=== PATIENT | female | born 1970 | race Caucasian/White ===

== ENCOUNTER 2016-05-05 15:06 | Emergency (ER) | payer BC, OTHER ==
[~2016-05-05] VITALS: Ht 167.6 cm; Wt 154.2 kg
[~2016-05-05 15:06] MED LIST: ACCUNEB 0.1.25 MG/1 INH; ADVAIR 250/501 EA INH; ALBUTEROL0.09 MG/A2 IH; ANTIBIOTIC O500 U/GM TP; ATIVAN0.5 MG PO; CIPRO250 MG; CIPRO500 MG PO; CLARITIN-D 12 H1 TAB PO; DOXYCYCLINE100 M3 PO; DUONEB 3 MG/3 ML3 M1 INH; FLOVENT HF0.22 MG/AC INH; FLUVOXAMINE50 MG PO; GUAIFEN/CODEIN120 ML PO; HYDROCODONE BIT1 T11 PO; IMODIUM2 MG PO; K-DUR 1010 MEQ PO; LASIX20 MG PO; LEVAQUIN500 M2 PO; LUVOX25 MG PO; MECLIZINE HCL25 M2 PO; MEDROL DOSEPAK4 MG PO; NAPROSYN500 MG PO; NORCO 10-325 T1 EACH PO; PREDNISONE10 MG PO; PREDNISONE5 MG PO; PROAIR HFA0.09 MG/AC INH; TESSALON PERLE100 M1 PO; VENTOLIN H0.09 MG/AC INH; VENTOLIN0.09 MG/AC IH; VIBRAMYCIN100 MG PO; ZOFRAN ODT4 MG SL; Zofran4 MG PO; [UNRECOGNIZED DRUG - OTHER] IJ
[2016-05-05 15:16] VITALS: BP 142/82
[2016-05-05 15:58] LABS: BASO % 0.2 % (0.0-1.0); EOS # 0.1 10*3/uL (0.0-0.4); EOS % 1.3 % (1.0-4.0); LYMPH # 1.9 10*3/uL (1.3-4.4); LYMPH % 36.9 % (27.0-41.0); MEAN CELL VOLUME 90.5 fl (81.0-99.0); MEAN CORPUSCULAR HGB 29.3 pg (27.0-31.0); MEAN CORPUSCULAR HGB CONC 32.4 g/dl (33.0-37.0); MEAN PLATELET VOLUME 9.8 fl (9.6-12.3); MONO # 0.6 10*3/uL (0.1-1.0); MONO % 11.2 % (3.0-9.0); NEUT # 2.6 10*3/uL (2.3-7.9); NEUT % 49.8 % (47.0-73.0); PLATELET COUNT AUTOMATED 199 10*3/uL (130-400); RED BLOOD COUNT 4.09 10*6/uL (4.10-5.10); RED CELL DISTRI WIDTH 13.2 % (0-14.5); WHITE BLOOD COUNT 5.3 10*3/uL (4.8-10.8)
[2016-05-05 16:02] LABS: BILIRUBIN NEGATIVE (NEGATIVE); BLOOD NEGATIVE (NEGATIVE); CLARITY CLEAR (CLEAR); COLOR YELLOW (YELLOW); GLUCOSE NEGATIVE (NEGATIVE); KETONE NEGATIVE (NEGATIVE); LEUKO ESTERASE NEGATIVE (NEGATIVE); NITRITE NEGATIVE (NEGATIVE); PROTEIN NEGATIVE (NEGATIVE); SPECIFIC GRAVITY >= 1.030 (1.005-1.030); UROBILINOGEN 0.2 E.U./dl (0.2-1.0)
[2016-05-05 16:13] LABS: MUCOUS TRACE; RBC 0-2 rbc/hpf (0-2); URINE REFLEX COMMENT NO (NO)
[2016-05-05 16:13] LABS: ALBUMIN 3.3 gm/dl (3.1-4.5); ALKALINE PHOSPHATASE 52 U/L (45-117); BILIRUBIN, TOTAL 0.5 mg/dl (0.2-1.0); BUN 13 mg/dl (7-24); CARBON DIOXIDE 26 mmol/L (21-32); CHLORIDE 108 mmol/L (98-107); EST GLOM FILT AFRICAN AMERICAN > 60 ml/min; GLUCOSE 105 mg/dL (65-99); POTASSIUM 3.7 mmol/L (3.5-5.1); SGOT/AST 25 IU/L (3-35); SGPT/ALT 47 U/L (12-78); SODIUM 144 mmol/L (136-145); TOTAL PROTEIN 6.5 gm/dL (6.4-8.2)
[2016-05-05] MEDS ORDERED: PRILOSEC20 M1 PO (17:21)
== END 2016-05-05 17:32 | disposition home or self-care (01) ==
LOC: ED 15:06
PROVIDERS: Physician Assistant
DX: R10.11 Right upper quadrant pain (principal); Z88.0 Allergy status to penicillin; Z88.6 Allergy status to analgesic agent; Z90.49 Acquired absence of other specified parts of digestive tract

== ENCOUNTER 2016-08-19 11:14 | Emergency (ER) | payer BC, OTHER ==
[~2016-08-19] VITALS: Ht 167.6 cm; Wt 149.7 kg
[~2016-08-19 11:14] MED LIST changes: +PRILOSEC20 M1 PO
[2016-08-19 11:21] VITALS: BP 133/79
[2016-08-19] MEDS ORDERED: DOXYCYCLINE100 M3 PO (11:24)
[2016-08-19] MEDS ORDERED: MEDROL2 M1 PO (11:24)
[2016-08-19 12:12] LABS: HEMATOCRIT 45.8 % (37.0-47.0); HEMOGLOBIN 15.1 g/dl (12.0-16.0); MEAN CELL VOLUME 88.4 fl (81.0-99.0); MEAN CORPUSCULAR HGB 29.2 pg (27.0-31.0); MEAN PLATELET VOLUME 11.1 fl (9.6-12.3); PLATELET COUNT AUTOMATED 236 10*3/uL (130-400); RED BLOOD COUNT 5.18 10*6/uL (4.10-5.10); RED CELL DISTRI WIDTH 12.5 % (0-14.5); WHITE BLOOD COUNT 6.5 10*3/uL (4.8-10.8)
[2016-08-19 12:28] LABS: ALBUMIN 3.9 gm/dl (3.1-4.5); ALKALINE PHOSPHATASE 67 U/L (45-117); BILIRUBIN, TOTAL 0.5 mg/dl (0.2-1.0); BUN 19 mg/dl (7-24); CARBON DIOXIDE 26 mmol/L (21-32); CHLORIDE 105 mmol/L (98-107); EST GLOM FILT AFRICAN AMERICAN > 60 ml/min; GLUCOSE 97 mg/dL (65-99); POTASSIUM 3.7 mmol/L (3.5-5.1); SGOT/AST 14 IU/L (3-35); SGPT/ALT 30 U/L (12-78); SODIUM 142 mmol/L (136-145); TOTAL PROTEIN 7.3 gm/dL (6.4-8.2)
[2016-08-19 12:31] LABS: LYMPHOCYTE # 0.3 10*3/uL (1.3-4.4); MONOCYTE # 0.3 10*3/uL (0.1-1.0); NEUTROPHIL # 5.9 10*3/uL (2.3-7.9); NEUTROPHILS 90 % (47-73); TOTAL CELLS COUNTED 100 #CELLS
[2016-08-19 12:32] LABS: PLATELET SUFFICIENCY NORMAL (NORMAL)
[2016-08-19 13:12] LABS: BILIRUBIN NEGATIVE (NEGATIVE); BLOOD NEGATIVE (NEGATIVE); CLARITY SL CLOUDY (CLEAR); COLOR YELLOW (YELLOW); GLUCOSE NEGATIVE (NEGATIVE); KETONE NEGATIVE (NEGATIVE); LEUKO ESTERASE NEGATIVE (NEGATIVE); NITRITE NEGATIVE (NEGATIVE); PH 5.5 (5.0-9.0); PROTEIN NEGATIVE (NEGATIVE); SPECIFIC GRAVITY 1.025 (1.005-1.030); UROBILINOGEN 0.2 E.U./dl (0.2-1.0)
[2016-08-19 13:28] LABS: MUCOUS 1+; URINE REFLEX COMMENT NO (NO); WBC 0-2 wbc/hpf (0-5)
[2016-08-19] MEDS ORDERED: ZOFRAN4 MG PO (14:24)
== END 2016-08-19 14:28 | disposition home or self-care (01) ==
LOC: ED 11:14
PROVIDERS: Nurse Practitioner Family
DX: B34.9 Viral infection, unspecified (principal); R03.0 Elevated blood-pressure reading, without diagnosis of hypertension; J45.909 Unspecified asthma, uncomplicated; Z88.0 Allergy status to penicillin; Z79.899 Other long term (current) drug therapy

== ENCOUNTER 2017-04-25 07:42 | Inpatient (IN) | payer OTHER ==
[~2017-04-25] VITALS: Ht 167.6 cm; Wt 157.5 kg
[2017-04-25] VITALS (8 sets, daily range): BP systolic 105–139; BP diastolic 51–89
[~2017-04-25 07:42] MED LIST changes: +MEDROL2 M1 PO; +ZOFRAN4 MG PO
[2017-04-25 08:15] LABS: BASO % 0.5 % (0.0-1.0); EOS # 0.1 10*3/uL (0.0-0.4); LYMPH # 2.7 10*3/uL (1.3-4.4); LYMPH % 35.2 % (27.0-41.0); MEAN CORPUSCULAR HGB 29.3 pg (27.0-31.0); MEAN CORPUSCULAR HGB CONC 33.3 g/dl (33.0-37.0); MEAN PLATELET VOLUME 10.6 fl (9.6-12.3); MONO # 0.5 10*3/uL (0.1-1.0); MONO % 6.8 % (3.0-9.0); NEUT # 4.4 10*3/uL (2.3-7.9); NEUT % 56.2 % (47.0-73.0); PLATELET COUNT AUTOMATED 226 10*3/uL (130-400); RED BLOOD COUNT 4.43 10*6/uL (4.10-5.10); RED CELL DISTRI WIDTH 12.3 % (0-14.5); WHITE BLOOD COUNT 7.8 10*3/uL (4.8-10.8)
[2017-04-25 08:31] LABS: ALBUMIN 3.2 gm/dl (3.1-4.5); ALKALINE PHOSPHATASE 71 U/L (45-117); BUN 16 mg/dl (7-24); CHLORIDE 108 mmol/L (98-107); CREATININE 1.05 mg/dL (0.55-1.02); LIPASE 239 U/L (73-393); POTASSIUM 3.8 mmol/L (3.5-5.1); SGOT/AST 12 IU/L (3-35); SGPT/ALT 20 U/L (12-78); SODIUM 140 mmol/L (136-145); TOTAL PROTEIN 6.7 gm/dL (6.4-8.2)
[2017-04-25 08:33] LABS: BETA-HCG, QUANT < 1.0 mIU/mL (1-3)
[2017-04-26] VITALS: BP 123/40
[2017-04-26 06:53] LABS: HEMATOCRIT 38.3 % (37.0-47.0); HEMOGLOBIN 12.5 g/dl (12.0-16.0); MEAN CELL VOLUME 89.9 fl (81.0-99.0); MEAN CORPUSCULAR HGB 29.3 pg (27.0-31.0); MEAN CORPUSCULAR HGB CONC 32.6 g/dl (33.0-37.0); MEAN PLATELET VOLUME 10.9 fl (9.6-12.3); PLATELET COUNT AUTOMATED 245 10*3/uL (130-400); RED BLOOD COUNT 4.26 10*6/uL (4.10-5.10); RED CELL DISTRI WIDTH 12.5 % (0-14.5)
[2017-04-26 07:22] LABS: BURR CELLS FEW; PLATELET SUFFICIENCY NORMAL (NORMAL); TOTAL CELLS COUNTED 100 #CELLS
[2017-04-26 07:34] LABS: ALBUMIN 3.1 gm/dl (3.1-4.5); ALKALINE PHOSPHATASE 67 U/L (45-117); BUN 13 mg/dl (7-24); CHLORIDE 108 mmol/L (98-107); CHOLESTEROL 173 mg/dL (<200); FREE T4 0.92 ng/dl (0.76-1.46); HDL CHOLESTEROL 60 mg/dl (40-60); LDL CHOLESTEROL 98 mg/dL (9-159); PHOSPHOROUS 2.7 mg/dL (2.5-4.9); POTASSIUM 3.8 mmol/L (3.5-5.1); SGOT/AST 10 IU/L (3-35); SGPT/ALT 15 U/L (12-78); SODIUM 142 mmol/L (136-145); TOTAL PROTEIN 6.6 gm/dL (6.4-8.2); TRIGLYCERIDES 77 mg/dl (<150); VLDL CHOLESTEROL 15 mg/dL (6-40)
[2017-04-26 08:00] VITALS: BP 118/71
[2017-04-26 09:42] LABS: VITAMIN D, 25-HYDROXY 24.1 ng/mL (30-100)
[2017-04-26 12:00] VITALS: BP 113/48
[2017-04-26] MEDS ORDERED: LORAZEPAM1 MG PO (14:16)
[2017-04-26 16:00] VITALS: BP 117/59
[2017-04-26 20:00] VITALS: BP 125/72
[2017-04-27] VITALS: BP 130/80
[2017-04-27 08:00] VITALS: BP 117/56
[2017-04-27 12:00] VITALS: BP 120/60
[2017-04-27] MEDS ORDERED: PREDNISONE10 MG PO (14:45)
[2017-04-27] MEDS ORDERED: NATURE'S BLEND F1 MG PO (14:45)
[2017-04-27] MEDS ORDERED: ROBITUSSIN DM 101 OZ PO (14:45)
[2017-04-27] MEDS ORDERED: SINGULAIR4 MG PO (14:45)
[2017-04-27] MEDS ORDERED: ADVAIR HFA 115-12 GM INH (14:45)
[2017-04-27] MEDS ORDERED: LEVOFLOXACIN500 MG PO (14:45)
[2017-04-27] MEDS ORDERED: VITAMIN D31000 UNI1 PO (14:45)
[2017-04-27] MEDS ORDERED: EPIPEN 2-P0.3 MG/0.3 IJ (14:45)
[2017-04-27] MEDS ORDERED: DUONEB 3 MG/3 ML3 M1 INH (14:45)
== END 2017-04-27 15:26 | disposition home or self-care (01) | DRG 202 ==
LOC: ED 07:42 → 4E 10:03 → EDHOLD 10:03 → 4E 10:18
PROVIDERS: Emergency Medicine; Registered Nurse
DX: J20.9 Acute bronchitis, unspecified (principal); E87.2 Acidosis; R65.10 Systemic inflammatory response syndrome (SIRS) of non-infectious origin without acute organ dysfunction; R06.1 Stridor; Z68.43 Body mass index [BMI] 50.0-59.9, adult; T78.3XXA Angioneurotic edema, initial encounter; E66.9 Obesity, unspecified; B34.9 Viral infection, unspecified; R73.9 Hyperglycemia, unspecified; E55.9 Vitamin D deficiency, unspecified; T45.0X5A Adverse effect of antiallergic and antiemetic drugs, initial encounter; J45.909 Unspecified asthma, uncomplicated; I10 Essential (primary) hypertension; Z88.0 Allergy status to penicillin; Z79.899 Other long term (current) drug therapy; Z90.49 Acquired absence of other specified parts of digestive tract; Z98.51 Tubal ligation status; Z83.3 Family history of diabetes mellitus; Z82.49 Family history of ischemic heart disease and other diseases of the circulatory system; Z82.3 Family history of stroke; Z84.89 Family history of other specified conditions; Z87.01 Personal history of pneumonia (recurrent); Y92.89 Other specified places as the place of occurrence of the external cause

== ENCOUNTER 2017-05-12 05:10 | Inpatient (IN) | payer OTHER ==
[~2017-05-12] VITALS: Ht 167.6 cm; Wt 145.1 kg
--- NOTE | ~2017-05-12 | CON ---
[place], [place] REPORT OF CONSULTATION NAME: SUZY BRANCH UNIT #: [id number] ROOM: 427 DOCTOR: RAJEEV EDWARDS DO BIRTHDATE: [birth year] DOS: 05/12/2017 CHIEF COMPLAINT: Shortness of breath, cough. HISTORY OF PRESENT ILLNESS: A 47-year-old female with recent hospitalization for acute bronchitis and was discharged 2 weeks ago, returns with complaints of worsening shortness of breath and cough that patient reports that never resolved since the first time she was discharged. The patient was on Levaquin and steroids during last hospitalization and had mild improvement. Continued her steroid taper yesterday, also began a course of doxycycline for the past 3 days with no improvement. The patient attempted to come to work, was unable to work due to her respiratory status, shortness of breath, unable to ambulate without hypoxia and therefore was admitted. The patient has a history of multiple recurrent respiratory infections. The patient reports she gets these infections about 8 times a year. The patient has had bronchoscopies in the past that have been therapeutic, most recent bronchoscopy being March 2016. The patient denies fever, chills, nausea, vomiting, diarrhea, constipation, urinary complaints, any other symptoms. PAST MEDICAL HISTORY: Asthma, moderate protein calorie malnutrition, morbid obesity, seasonal allergies and vitamin D deficiency. PAST SURGICAL HISTORY: Bronchoscopy, endometrial ablation, appendectomy, cholecystectomy, tonsillectomy, tubal ligation. SOCIAL HISTORY: The patient denies alcohol, tobacco and illicit drug use. FAMILY HISTORY: Father had hypertension, diabetes. Mother has diverticulosis and irritable bowel syndrome. ALLERGIES: PENICILLINS. HOME MEDICATIONS: Include vitamin D, EpiPen, Advair, fluvoxamine, folic acid supplementation, DuoNeb, and Singulair. REVIEW OF SYSTEMS: GENERAL: The patient denies fever, chills, weight loss, weight gain. HEENT: The patient complains of nose congestion and throat pain. Denies change in vision, diplopia, hearing loss and pain in the ears. CARDIOVASCULAR: The patient denies chest pain, palpitations, lower extremity edema, or diaphoresis. RESPIRATORY: The patient complains of shortness of breath, nonproductive cough, wheezing; however, denies hemoptysis and stridor and sputum production. ABDOMEN: The patient denies abdominal pain. Denies changes in bowel or bladder habits. Denies nausea, denies vomiting. NEUROLOGIC: The patient denies lightheadedness, dizziness, confusion. SKIN: The patient denies rashes and lesions, ulcers. VITAL SIGNS: Temperature 98.6, pulse is 100, respirations 20, blood pressure 143/93, pulse ox 97% on room air. [place], [place] REPORT OF CONSULTATION NAME: SUZY BRANCH UNIT #: [id number] ROOM: 427 DOCTOR: RAJEVE EDWARDS DO BIRTHDATE: [birth year] LABORATORY DATA: White count 12.3, hemoglobin 13.4, hematocrit 40.6, platelets 215. Chemistries: Sodium 138, potassium 3.6, chloride 104, carbon dioxide 26, BUN 14, creatinine 0.96. GFR is greater than 60, glucose is 87. Lactic acid is 1.9, calcium 8.4. Liver enzymes were normal. Albumin 3.2. Nares swabs for flu were negative and negative for RSV as well. IMAGING: Chest x-ray shows no radiographic evidence of acute cardiopulmonary process. PHYSICAL EXAMINATION: GENERAL APPEARANCE: The patient is alert and oriented times 3 in moderate respiratory distress. HEENT: Eyes are clear. No injection. Nares are patent. Oral mucosa is moist without erythema in the oropharynx. NECK: Supple, nontender. CARDIOVASCULAR: Regular rate and rhythm; no murmurs, gallops or rubs. PULMONARY: Lungs are clear to auscultation in all lung mann. No rales, rhonchi or wheezes. ABDOMEN: Soft, nontender, obese with positive bowel sounds. EXTREMITIES: Lower extremities have mild edema, no erythema, no lesions. NEUROLOGIC: Exam is negative for focal deficits. IMPRESSION: 1. Acute bronchitis, pneumonitis with exacerbation of asthma. 2. Morbid obesity. 3. Failed outpatient treatment. TREATMENT PLAN: At this time, the patient to continue on Solu-Medrol 60 b.i.d., Robitussin, Levaquin and DuoNeb and all other supportive care. If the patient fails to improve, we will consider bronchoscopy on Monday. RAJEEV EDWARDS DO KOREY LARIOS MD CM:CONSTR:REPORT OF CONSULTATION 1303 05/12/17 1429 interface
--- NOTE | ~2017-05-12 | PR ---
[place], [place] PROGRESS NOTE NAME: SUZY BRANCH UNIT #: [id number] ROOM: 427 DOCTOR: KOREY ACOSTA MD BIRTHDATE: [birth year] DOS: 05/15/2017 SUBJECTIVE: The patient was noted with the same symptoms that remains unchanged in the past 3 days with severe coughing episode without sputum expectoration. Continued wheezing, using the Mucinex and the flutter valve. Denies any symptoms of nausea, vomiting. Dizziness noted with a headache. The patient denies symptoms of hemoptysis. Denies edema or pain of the lower extremities. The patient is n.p.o. past midnight for bronchoscopy to be done today. OBJECTIVE: VITAL SIGNS: Normal temperature, respiratory rate 18-24, heart rate of 119-86, blood pressure 136/64 to 130/88. Pulse ox saturation was noted on room 90%-94% saturation. HEENT: Chronic obesity. NECK: Supple and obese. CARDIOVASCULAR: S1, S2 audible. LUNGS: The patient was noted without any crackles. Diffuse expiratory wheezing of the patient remains unchanged. ABDOMEN: Soft, nontender. EXTREMITIES: The patient was noted with chronic obesity. SKIN: No lesions or rashes. MUSCULOSKELETAL: No deformities. CENTRAL NERVOUS SYSTEM: Intact. LABORATORY DATA: Today BMP for the patient this morning, glucose 127, minimally elevated, normal BUN, creatinine and other electrolytes. CBC of the patient this morning: WBC count 18.2 and remaining electrolytes were normal. IMPRESSION: 1. The patient was noted with ongoing acute exacerbation of bronchial asthma, which were noted severe with suspected mucus impaction. No change in symptoms occurred in the past 3 days. The patient is on maximum medical therapy. 2. Chronic obesity. 3. Mild steroid-induced hyperglycemia. PLAN OF TREATMENT: The patient will be undergoing bronchoscopy today for further assessment of current cough and extracted mucus plug from the major airways. In addition, treatment changes ____ will be ordered after the bronchoscopy. In the meantime, continue supportive therapy, plan of management and care. Usual treatment. Other supportive care, plan of care and management. [place], [place] PROGRESS NOTE NAME: SUZY BRANCH UNIT #: [id number] ROOM: 427 DOCTOR: KOREY ACOSTA MD BIRTHDATE: [birth year] KOREY LARIOS MD CM:ADNE 1303 KOREY COPELAND MD 05/15/177 interface
--- NOTE | ~2017-05-12 | PR ---
[place], [place] PROGRESS NOTE NAME: SUZY BRANCH UNIT #: [id number] ROOM: 427 DOCTOR: KOREY ACOSTA MD BIRTHDATE: [birth year] DOS: 05/14/2017 SUBJECTIVE: She has been noted same with nonproductive cough, remains the same episodic. Denies symptoms of hemoptysis. Chest pain was described because of the cough. Shortness of breath and wheezing persists. OBJECTIVE: VITAL SIGNS: Normal temperature, respiratory rate 20, heart rate 118, blood pressure 134/70-120/69. Pulse oxygen saturation on room air 93% saturation. HEENT: Chronic obesity. NECK: Supple. CARDIOVASCULAR: S1, S2 audible. LUNGS: Diffuse reduction in the breath sounds with expiratory wheezing. There were no crackles. ABDOMEN: Soft and obese. EXTREMITIES: Chronic obesity. SKIN: No lesions or rashes. MUSCULOSKELETAL: No deformities. CENTRAL NERVOUS SYSTEM: Intact. LABORATORY DATA: CBC today WBC count 14.8, remaining CBC were normal. BMP this morning, glucose 132, remaining BMP was normal. IMPRESSION: 1. Persistent severe cough. Mucus impaction with acute exacerbation of bronchial asthma without any changes in the last 24 hours. 2. Leukocytosis secondary to underlying acute infection, acute sinus tachycardia related to exacerbation of bronchial asthma, persistent. PLAN OF MANAGEMENT: The patient will be continued on the current plan of management at this time with corticosteroids, bronchodilator therapy, and maximizing the therapy for bronchial asthma. Bronchoscopy planned to be done tomorrow morning to assess the mucous impaction, major airway clear mucous plugs. Supportive therapy. Bronchodilators every 4 hours as ordered. Symptomatic management as well. [place], [place] PROGRESS NOTE NAME: SUZY BRANCH UNIT #: [id number] ROOM: 427 DOCTOR: KOREY ACOSTA MD BIRTHDATE: [birth year] KOREY LARIOS MD CM:PNTRANS [id number] KOREY COPELAND MD 05/14/17 1617 interface
--- NOTE | ~2017-05-12 | EKG ---
[place], [place] ELECTROCARDIOGRAM REPORT NAME: SUZY BRANCH UNIT #: [id number] ROOM: 427 DOCTOR: HARRIET COPELAND MD,KOREY BIRTHDATE: [birth year] DOS: 05/12/2017 TIME: Done at 5:51 a.m. Normal sinus rhythm noted. Heart rate 96 beats per minute. Poor R-wave progression noted in the lateral leads, rule out ischemia. KOREY LARIOS MD CM:EKGRPT:ELECTROCARDIOGRAM REPORT [id number] KOREY COPELAND MD
--- NOTE | ~2017-05-12 | PR ---
[place], [place] PROGRESS NOTE NAME: SUZY BRANCH [facility] #: [id number] UNIT #: [id number] ROOM: 427 DOCTOR: RAJEEV EDWARDS DO BIRTHDATE: [birth year] DOS: 05/17/2017 SUBJECTIVE: The patient is seen and examined at bedside. The patient reports that she has no improvement from her respiratory symptoms since yesterday, continues to have cough, shortness of breath, chronic fatigue, nonproductive cough; however, the patient feels like she has mucus plugging and is unable to expectorate said mucus. The patient has no new complaints at this time; however, she is expressing some depression with the chronic nature of her respiratory symptoms and having to continuously scott recurrent upper respiratory infection. OBJECTIVE: VITAL SIGNS: Temperature is 98.2, pulse is 81, respirations 20, blood pressure 158/85 and pulse ox is 94% on room air. LABS: No new labs are drawn today. Micro: Bronch washings remain negative. Flu and RSV were negative. PHYSICAL EXAMINATION: GENERAL APPEARANCE: The patient is alert, awake and oriented x 3, in [id number] distress. HEENT: Eyes are clear. No injection. Nares are patent. Mucous membranes are moist. NECK: Supple, nontender. CARDIOVASCULAR: Regular rate and rhythm, no murmurs, gallops or rubs. PULMONARY: Diminished in all lung mann. Mild expiratory wheezes, no rhonchi, no rales. ABDOMEN: Obese and nontender. Positive bowel sounds. EXTREMITIES: No edema, cyanosis, clubbing, or erythema. NEUROLOGIC: Negative for focal deficits. ASSESSMENT AND PLAN: 1. Ongoing acute exacerbation of bronchial asthma, status post bronchoscopy on Monday, the . 2. Chronic obesity. 3. Steroid-induced hyperglycemia. PLAN OF CARE: The patient is stable from a pulmonary standpoint for discharge. Recommend a line be placed whether to midline versus a PICC line for IV steroids for 1 week and then can be switched to oral steroids with a taper. Continue with antibiotics and inhalers at home. Follow up with Dr. Larios outpatient in 1-2 weeks. RAJEEV EDWARDS DO [place], [place] PROGRESS NOTE NAME: SUZY BRANCH UNIT #: [id number] ROOM: 427 DOCTOR: RAJEEV EDWARDS DO BIRTHDATE: [birth year] KOREY LAIROS MD CM:DANE [id number] RAJEEV EDWARDS DO 05/17/17 1304 interface
--- NOTE | ~2017-05-12 | PROC NOTE ---
[place], [place] PROCEDURE NOTE NAME: SUZY BRANCH UNIT #: [id number] ROOM: 427 DOCTOR: HARRIET COPELAND MD,KOREY BIRTHDATE: [birth year] DOS: 05/15/2017 PREOPERATIVE DIAGNOSES: Severe nonresolving cough with wheezing. POSTOPERATIVE DIAGNOSES: Multiple large plugs of mucus and clear of endobronchial tree bilaterally. FINDINGS: Acute tracheobronchitis. COMPLICATIONS: None. PROCEDURE DESCRIPTION: Informed consent obtained with the patient, she was brought to the OR and placed in supine position. Conscious sedation administered by the Anesthesia Department. After achieving proper sedation, airway introduced into the mouth. Bronchoscope withdrawn to the airway into laryngeal area. Epiglottis vocal cord seen. Vocal cords moving symmetrically with movements. Bronchoscope entered vocal cord. Tracheal lumen noted with moderate amount of thick mucus secretions with small purulent secretion mixture suctioned out to the aaron level. After that, the right upper, right middle, right lower, left upper, lingular lobe bronchi were all examined. Large plugs and mucus present in endobronchial tree bilaterally. Small purulent secretions suctioned out with normal saline wash inflammatory changes. The mucosa were noted. Procedure well tolerated by the patient without complication. Postoperative findings were discussed with the patient's family members after the completion of procedure. No change in treatment immediately will be needed at the present time after bronchoscopy. KOREY LARIOS MD CM:PROCNOTE:PROCEDURE NOTE 1305 [id number] KOREY COPELAND MD
--- NOTE | ~2017-05-12 | PR ---
[place], [place] PROGRESS NOTE NAME: SUZY BRANCH UNIT #: [id number] ROOM: 427 DOCTOR: HARRIET COPELAND MD,KOREY BIRTHDATE: [birth year] DOS: 05/17/2017 SUBJECTIVE: The patient was seen today [id number] encounter, history was confirmed. Physical examination was performed. All the lab was reviewed. Note done by the senior medical writer was approved. The patient has been still noted the coughing, which has not been noted completely resolved. Denies symptoms of chest pain or any abdominal pain. PHYSICAL EXAMINATION: VITAL SIGNS: Which was recorded for the patient essentially noted as normal. LUNGS: The patient was noted without any wheezing or crackles at the present time. ABDOMEN: Soft, nontender. Bowel sounds present. EXTREMITIES: The patient was noted without any edema, clubbing or cyanosis. LABORATORY DATA: The cultures of the bronchial washing was noted as normal wendy. IMPRESSION: The patient who has been noted currently resolving gradually of acute severe exacerbation of bronchial asthma, acute tracheobronchitis with gradual improvement was continued. PLAN OF TREATMENT: No changes in the plan of management for the patient at this time will be needed. The patient could be discharged home on IV Solu-Medrol for the next 7 days of 40 mg b.i.d. and then tapering dose of prednisone. Antibiotic could be given orally either doxycycline or Zithromax. KOREY LARIOS MD CM:PNTRANS [id number] KOREY COPELAND MD 05/18/17 0141 interface
--- NOTE | ~2017-05-12 | PR ---
[place], [place] PROGRESS NOTE NAME: SUZY BRANCH [facility] #: [id number] UNIT #: [id number] ROOM: 427 DOCTOR: RAJEEV EDWARDS DO BIRTHDATE: [birth year] DOS: 05/16/2017 SUBJECTIVE: The patient is seen and examined at bedside. The patient was sitting upright in no acute distress. The patient reports that she continues to feel short of breath, although she has had some mild improvement, continues to have cough that is nonproductive. The patient feels better after having a bronchoscopy on Monday; however, she does not feel like she is ready to go home and thinks she needs 1 more day of care before she will be ready to go home to continue her care outpatient,. No new complaints at this time. OBJECTIVE: VITAL SIGNS: Temperature is 98.0, pulse is 94, respirations 20, blood pressure 166/84, pulse ox is 93% on room air. GENERAL APPEARANCE: The patient is alert and oriented times 3, no acute distress. HEENT: Eyes are clear. Nares are patent. Mucous membranes are moist. NECK: Supple and nontender. CARDIOVASCULAR: Regular rate and rhythm, no murmurs, gallops or rubs. PULMONARY: Expiratory wheezing. No rales or rhonchi. ABDOMEN: Soft, nontender and obese with positive bowel sounds. EXTREMITIES: No edema, no cyanosis, no clubbing, no erythema. MUSCULOSKELETAL: No deformities. NEUROLOGIC: No focal deficits. LABORATORY DATA: BMP this morning was normal, mildly elevated glucose of 126, calcium 8.3. Bronchial washings continued to be negative. Flu was negative. ASSESSMENT: 1. Ongoing acute exacerbation of bronchial asthma with severe mucous impaction status post bronchoscopy. 2. Chronic obesity. 3. Steroid-induced hyperglycemia. PLAN OF CARE: Continue with current respiratory therapy, which includes Singulair, Dulera, Solu-Medrol 60 q.12, Mucinex, Robitussin, Levaquin, DuoNeb. No change in current treatment. The patient continues to improve clinically and patient will likely be ready for discharge tomorrow. We will assess the patient in the morning. RAJEEV EDWARDS DO [place], [place] PROGRESS NOTE NAME: SUZY BRANCH UNIT #: [id number] ROOM: 427 DOCTOR: RAJEVE EDWARDS DO BIRTHDATE: [birth year] KOREY LARIOS MD CM:DANE 1405 [id number] RAJEEV EDWARDS DO 05/16/17 1535 interface
--- NOTE | ~2017-05-12 | PR ---
[place], [place] PROGRESS NOTE NAME: SUZY BRANCH UNIT #: [id number] ROOM: 427 DOCTOR: HARRIET COPELAND MD,KOREY BIRTHDATE: [birth year] DOS: 05/16/2017 ADDENDUM SUBJECTIVE: The patient was independently seen and examined with [id number] encounter, history was confirmed. Physical examination personally performed. All the available labs were reviewed. The note done by the medical lead, was approved. The assessment and management for today's visit personally done. She has a bronchoscopy done yesterday with significant reduction in the cough. However, the resolution has been noted incomplete. Chest tightness was noted. Chest pain was described in the lower portion of the rib cage cough. OBJECTIVE: VITAL SIGNS: Reviewed, essentially were noted as resolution of tachycardia, blood pressure noted mild elevation of systolic pressure. CHEST: Auscultation, scattered expiratory wheezing. There were no crackles. ABDOMEN: Soft and obese. LABORATORY DATA: Culture of the sputum, phlegm noted normal wendy. Final culture results were pending. The Gram stain showed many white blood cells, few epithelial cells, few gram-positive cocci in pairs and chains and clusters. PLAN OF TREATMENT: The patient would be continued with bronchodilators, oxygen supplementation, antibiotics, and corticosteroids. Monitor culture results. Possible discharge home in the morning depends on further improvement in the respiratory status would be advised. KOREY LARIOS MD CM:PNTRANS 1351 [id number] KOREY COPELAND MD 05/16/171951 interface
--- NOTE | ~2017-05-12 | CON ---
[place], [place] REPORT OF CONSULTATION NAME[id number] UNIT #: [id number] ROOM: 427 DOCTOR: HARRIET COPELAND MDKOREY BIRTHDATE: [birth year] DOS: 05/12/2017 PULMONARY CONSULTATION, EVALUATION, AND MANAGEMENT CONSULTATION WAS REQUESTED BY: Hospitalist Services. REASON FOR CONSULTATION: Assessment of nonresolving cough. HISTORY OF PRESENT ILLNESS: A 47-year-old female who has been known to me with past history of bronchial asthma, treated by the primary care physician, had been seen intermittently the patient with previous hospitalization. The patient was independently seen and examined with [id number] encounter today. The history of the patient was personally taken from the patient. Physical examination was performed. All the labs were reviewed, recommendation, and management for the patient, but she made after doing the assessment for the patient for today's visit. Note done by the biomedical equipment support specialist consultation was approved as well. This is a 47-year-old white female patient who had been admitted to the hospital service on 05/12/2017 as the patient was noted with increased symptoms of cough. The patient noted nonproductive, progressive, worsening, and excessive chest congestion. The patient was also noted symptoms of shortness of breath with that with tightness in the chest and wheezing. She has been admitted to the hospital a couple of weeks ago, treated for similar symptoms. The patient has not shown improvement in the respiratory status. The patient has been currently admitted to the hospital for the assessment and management of current problem. The patient denies any symptoms of chest pain or hemoptysis. REVIEW OF SYSTEMS: The patient was completed by the biomedical equipment support specialist. PAST MEDICAL HISTORY: Noted with 1. History of uncomplicated severe persistent bronchial asthma. 2. Morbid obesity. 3. Seasonal allergic rhinitis. 4. Vitamin D deficiency. PAST SURGICAL HISTORY: 1. Endometrial ablation. 2. Tonsillectomy. 3. Tubal ligation. 4. Appendectomy. 5. Cholecystectomy. 6. Therapeutic bronchoscopy that was done in 2016. SOCIAL HISTORY: The patient noted nonsmoker. There is history of alcohol use and illicit drug use. 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 FAMILY HISTORY: The patient was known. Father is 69-year-old with history of diabetes and hypertension. Mother is 65-year-old with history of diverticulosis and IBS. [place], [place] REPORT OF CONSULTATION NAME: SUZY BRANCH UNIT #: [id number] ROOM: 427 DOCTOR: HARRIET COPELAND MD,KOREY BIRTHDATE: [birth year] HOME MEDICATIONS: Listed as vitamin D, EpiPen p.r.n. use, Advair, folic acid, DuoNeb, Singulair, and fluvoxamine. DRUG ALLERGIES: NOTED ALLERGY TO PENICILLIN CAUSING ANAPHYLAXIS. PHYSICAL EXAMINATION: GENERAL: A 47-year-old female currently noted awake and alert, noted excessive coughing at the time of the assessment and examination, sitting on her bed. Height of 5 feet 6 inches, weight of 320 pounds, and BMI 56. VITAL SIGNS: Normal temperature, respiratory rate 18-20, heart rate of 111-96, sinus tachycardia, blood pressure 140/77-137/80, and pulse oxygen saturation on room air 97% saturation. HEENT: Head was atraumatic. Eyes nonicterus. Severe reduced posterior pharyngeal space. Oral mucosa is moist. CARDIOVASCULAR: S1, S2 audible. LUNGS: Examination of the lungs, generally reduced breath sounds with expiratory wheezing, no crackles. ABDOMEN: Soft with severe obesity. Bowel sounds present without tenderness. EXTREMITIES. Chronic obesity without edema, clubbing, or cyanosis. VISIBLE SKIN: No lesions or rashes. MUSCULOSKELETAL: Without deformity. CENTRAL NERVOUS SYSTEM: Intact. Cranial nerves 2-12 intact. LABORATORY DATA: CBC today: WBC count 12.3. Remaining CBC were normal. Lactic acid 1.9. CMP of the patient of 05/12/2017, normal BUN and creatinine and other labs were normal. Influenza A and B, nasal washing antigen and rapid antigen were negative. Chest x-ray of the patient that was done for the patient this morning, PA lateral view personally reviewed from PACS images were noted without any acute abnormalities. IMPRESSION: 1. Persistent acute bronchial asthma exacerbation with suspected mucus impaction, major airways, ____ respiratory symptoms secondary to that. Possible ongoing acute infection nonresolving would be considered as well. 2. Chronic morbid obesity for the patient was also noted. 3. Tachycardia secondary to the current acute exacerbation of bronchial asthma, not an uncommon finding as well. PLAN OF MANAGEMENT: Continue current dose of Solu-Medrol 60 mg b.i.d., bronchodilators every 4 hours, a DuoNeb, antibiotic as Levaquin, other symptomatic management, and symptomatic management of cough. Therapeutic bronchoscopy suggested to be done for the patient upon availability scheduled for the patient as well. In the meantime, continue the noninvasive treatment with the patient's medical therapy with use of the flutter valve and bronchodilator. The Mucinex will be started 1200 mg b.i.d. as well. Symptoms will be monitored in the next couple of days. Therapeutic bronchoscopy to be done on Monday for the patient if needed. [place], [place] REPORT OF CONSULTATION NAME: SUZY BRANCH UNIT #: [id number] ROOM: 427 DOCTOR: KOREY ACOSTA MD BIRTHDATE: [birth year] KOREY LARIOS MD CM:CONSTR:REPORT OF CONSULTATION 1653 05/13/17 0118 interface
--- NOTE | ~2017-05-12 | PR ---
[place], [place] PROGRESS NOTE [id number] UN[facility] #: [id number] ROOM: 427 DOCTOR: HARRIET COPELAND MD,KOREY BIRTHDATE: [birth year] DOS: 05/13/2017 SUBJECTIVE: She continued to have severe nonproductive cough with pain in the ribcage because of that. Denies symptoms of hemoptysis. The patient was noted with shortness of breath and wheezing at times. OBJECTIVE: VITAL SIGNS: For the patient, normal temperature, respiratory 20, heart rate of 103-113, sinus tachycardia, blood pressure 114/60 - 32/80. The pulse oxygen saturation on room air 96% saturation. HEENT: Chronic severe obesity. Neck, supple. Head was atraumatic. CARDIOVASCULAR: S1, S2 audible. LUNGS: Noted with diffuse reduction in breath sounds, expiratory wheezing. ABDOMEN: Soft, obese, nontender. EXTREMITIES: Edema with no lesions or rashes. MUSCULOSKELETAL: No deformities. SKIN: Intact. No focal deficit. LABORATORY DATA: PT/PTT today was noted as normal. BMP today, glucose at 131. Remaining electrolytes of the patient was noted normal. CBC today: WBC count 12.9, hemoglobin and hematocrit normal, platelet count normal. IMPRESSION: 1. Persistent acute exacerbation of bronchial asthma, suspected mucus impaction noted with minimal improvement from yesterday. 2. Musculoskeletal pain secondary to excessive cough, inability to expectorate sputum as well. 3. Chronic obesity as well. 4. Leukocytosis related to current pulmonary infection. 5. Sinus tachycardia related to ongoing acute exacerbation of bronchial asthma. PLAN OF TREATMENT: Continue corticosteroids, bronchodilators, Mucinex as well as the flutter valve use. Bronchoscopy for patient was assessed and planned to be done on Monday morning, n.p.o. from Monday midnight. No other change in treatment will be necessary. Continue current dose of steroids, bronchodilator treatment as in progress. Usual care. KOREY LARIOS MD CM:PNTRANS [id number] KOREY COPELAND MD 05/14/17 0117 interface
[~2017-05-12 05:10] MED LIST changes: +ADVAIR HFA 115-12 GM INH; +EPIPEN 2-P0.3 MG/0.3 IJ; +LEVOFLOXACIN500 MG PO; +LORAZEPAM1 MG PO; +NATURE'S BLEND F1 MG PO; +ROBITUSSIN DM 101 OZ PO; +SINGULAIR4 MG PO; +VITAMIN D31000 UNI1 PO
[2017-05-12 05:18] VITALS: BP 154/85
[2017-05-12 06:02] LABS: BASO % 0.2 % (0.0-1.0); EOS # 0.1 10*3/uL (0.0-0.4); EOS % 0.7 % (1.0-4.0); HEMATOCRIT 40.6 % (37.0-47.0); HEMOGLOBIN 13.4 g/dl (12.0-16.0); LYMPH # 2.8 10*3/uL (1.3-4.4); LYMPH % 23.1 % (27.0-41.0); MEAN CELL VOLUME 89.6 fl (81.0-99.0); MEAN CORPUSCULAR HGB 29.6 pg (27.0-31.0); MEAN PLATELET VOLUME 10.6 fl (9.6-12.3); MONO # 0.8 10*3/uL (0.1-1.0); MONO % 6.2 % (3.0-9.0); NEUT # 8.5 10*3/uL (2.3-7.9); PLATELET COUNT AUTOMATED 215 10*3/uL (130-400); RED BLOOD COUNT 4.53 10*6/uL (4.10-5.10); WHITE BLOOD COUNT 12.3 10*3/uL (4.8-10.8)
[2017-05-12 06:10] VITALS: BP 145/84
[2017-05-12 06:17] LABS: ALBUMIN 3.2 gm/dl (3.1-4.5); ALKALINE PHOSPHATASE 55 U/L (45-117); BUN 14 mg/dl (7-24); CHLORIDE 104 mmol/L (98-107); CREATININE 0.96 mg/dL (0.55-1.02); POTASSIUM 3.6 mmol/L (3.5-5.1); SGOT/AST 8 IU/L (3-35); SGPT/ALT 20 U/L (12-78); SODIUM 138 mmol/L (136-145); TOTAL PROTEIN 6.5 gm/dL (6.4-8.2)
[2017-05-12 06:18] LABS: TROPONIN I < 0.015 ng/ml (<0.045)
[2017-05-12] MEDS ORDERED: SINGULAIR10 M1 PO (06:43)
[2017-05-12 08:00] VITALS: BP 143/93
[2017-05-12 08:40] LABS: BILIRUBIN NEGATIVE (NEGATIVE); BLOOD NEGATIVE (NEGATIVE); CLARITY SL CLOUDY (CLEAR); COLOR YELLOW (YELLOW); GLUCOSE NEGATIVE (NEGATIVE); KETONE NEGATIVE (NEGATIVE); LEUKO ESTERASE NEGATIVE (NEGATIVE); NITRITE NEGATIVE (NEGATIVE); UROBILINOGEN 0.2 E.U./dl (0.2-1.0)
[2017-05-12 08:42] LABS: BACTERIA TRACE; MUCOUS 1+; WBC 0-2 wbc/hpf (0-5)
[2017-05-12 12:00] VITALS: BP 137/80
[2017-05-12 16:00] VITALS: BP 140/77
[2017-05-12 20:00] VITALS: BP 126/91
[2017-05-13] VITALS: BP 146/70
[2017-05-13 07:09] LABS: BASO % 0.1 % (0.0-1.0); EOS % 0.1 % (1.0-4.0); HEMATOCRIT 38.6 % (37.0-47.0); HEMOGLOBIN 12.5 g/dl (12.0-16.0); LYMPH % 7.9 % (27.0-41.0); MEAN CELL VOLUME 90.6 fl (81.0-99.0); MEAN CORPUSCULAR HGB 29.3 pg (27.0-31.0); MEAN CORPUSCULAR HGB CONC 32.4 g/dl (33.0-37.0); MEAN PLATELET VOLUME 10.6 fl (9.6-12.3); MONO # 1.1 10*3/uL (0.1-1.0); MONO % 8.3 % (3.0-9.0); NEUT # 10.6 10*3/uL (2.3-7.9); NEUT % 82.7 % (47.0-73.0); PLATELET COUNT AUTOMATED 204 10*3/uL (130-400); RED BLOOD COUNT 4.26 10*6/uL (4.10-5.10); RED CELL DISTRI WIDTH 13.2 % (0-14.5); WHITE BLOOD COUNT 12.9 10*3/uL (4.8-10.8)
[2017-05-13 07:16] LABS: ACT PARTIAL THROMBO TIME 19.3 SECONDS (20.8-31.5); INTERNATIONAL NORM RATIO 0.9 (2.0-3.5)
[2017-05-13 07:18] LABS: BUN 12 mg/dl (7-24); CHLORIDE 106 mmol/L (98-107); CREATININE 0.82 mg/dL (0.55-1.02); PHOSPHOROUS 4.1 mg/dL (2.5-4.9); SODIUM 142 mmol/L (136-145)
[2017-05-13 08:00] VITALS: BP 148/91
[2017-05-13 12:00] VITALS: BP 132/80
[2017-05-13] MEDS ORDERED: ADVAIR HFA 115-12 GM INH (14:48)
[2017-05-13 16:58] VITALS: BP 114/63
[2017-05-13 20:00] VITALS: BP 141/77
[2017-05-14] VITALS: BP 106/57
[2017-05-14 07:15] LABS: HEMATOCRIT 39.3 % (37.0-47.0); HEMOGLOBIN 12.9 g/dl (12.0-16.0); MEAN CORPUSCULAR HGB 29.9 pg (27.0-31.0); MEAN CORPUSCULAR HGB CONC 32.8 g/dl (33.0-37.0); MEAN PLATELET VOLUME 10.2 fl (9.6-12.3); PLATELET COUNT AUTOMATED 225 10*3/uL (130-400); RED BLOOD COUNT 4.32 10*6/uL (4.10-5.10); RED CELL DISTRI WIDTH 13.2 % (0-14.5); WHITE BLOOD COUNT 14.8 10*3/uL (4.8-10.8)
[2017-05-14 07:42] LABS: PLATELET SUFFICIENCY NORMAL (NORMAL); TOTAL CELLS COUNTED 100 #CELLS
[2017-05-14 07:46] LABS: BUN 14 mg/dl (7-24); CHLORIDE 102 mmol/L (98-107); SODIUM 139 mmol/L (136-145)
[2017-05-14 07:47] LABS: CREATININE 0.86 mg/dL (0.55-1.02)
[2017-05-14 08:00] VITALS: BP 121/69
[2017-05-14 12:00] VITALS: BP 134/72
[2017-05-14 16:00] VITALS: BP 129/73
[2017-05-14 20:00] VITALS: BP 131/89
[2017-05-15] VITALS (8 sets, daily range): BP systolic 120–153; BP diastolic 64–88
[2017-05-15 07:19] LABS: BASO % 0.1 % (0.0-1.0); EOS % 0.1 % (1.0-4.0); HEMATOCRIT 42.8 % (37.0-47.0); HEMOGLOBIN 13.6 g/dl (12.0-16.0); LYMPH # 1.1 10*3/uL (1.3-4.4); LYMPH % 6.1 % (27.0-41.0); MEAN CELL VOLUME 91.3 fl (81.0-99.0); MEAN CORPUSCULAR HGB CONC 31.8 g/dl (33.0-37.0); MEAN PLATELET VOLUME 10.3 fl (9.6-12.3); MONO % 5.5 % (3.0-9.0); NEUT # 15.8 10*3/uL (2.3-7.9); PLATELET COUNT AUTOMATED 253 10*3/uL (130-400); RED BLOOD COUNT 4.69 10*6/uL (4.10-5.10); RED CELL DISTRI WIDTH 13.2 % (0-14.5); WHITE BLOOD COUNT 18.2 10*3/uL (4.8-10.8)
[2017-05-15 07:34] LABS: BUN 16 mg/dl (7-24); CHLORIDE 102 mmol/L (98-107); CREATININE 1.05 mg/dL (0.55-1.02); POTASSIUM 4.1 mmol/L (3.5-5.1); SODIUM 137 mmol/L (136-145)
[2017-05-16] VITALS: BP 136/75
[2017-05-16 08:00] VITALS: BP 166/88
[2017-05-16 08:47] LABS: BUN 14 mg/dl (7-24); CHLORIDE 102 mmol/L (98-107); CREATININE 0.85 mg/dL (0.55-1.02); POTASSIUM 4.2 mmol/L (3.5-5.1); SODIUM 137 mmol/L (136-145)
[2017-05-16 12:00] VITALS: BP 166/84
[2017-05-16 13:08] LABS: ACID FAST SMEAR Negative (.); ACID FAST SPEC PROCESSING Concentration (.)
[2017-05-16 16:00] VITALS: BP 155/85
[2017-05-16 19:40] VITALS: BP 164/93
[2017-05-17] VITALS: BP 130/74
[2017-05-17 08:00] VITALS: BP 138/85
[2017-05-17 12:00] VITALS: BP 158/85
[2017-05-17 16:00] VITALS: BP 137/78
[2017-05-17] MEDS ORDERED: LEVAQUIN750 M1 PO (16:57)
[2017-05-17] MEDS ORDERED: Solu-Medrol IV (16:57)
[2017-05-17] MEDS ORDERED: ATIVAN2 M1 PO (16:57)
== END 2017-05-17 17:49 | disposition home or self-care (01) | DRG 871 ==
LOC: ED 05:10 → EDHOLD 06:40 → 4E 06:40
PROVIDERS: Emergency Medicine Emergency Medical Services; Family Medicine; Internal Medicine; Internal Medicine Critical Care Medicine; Student in an Organized Health Care Education/Training Program
PROC: 0BC38ZZ Extirpation of Matter from Right Main Bronchus, Via Natural or Artificial Opening Endoscopic (ICD-10-PCS; principal; 2017-05-15)
PROC: 0BC68ZZ Extirpation of Matter from Right Lower Lobe Bronchus, Via Natural or Artificial Opening Endoscopic (ICD-10-PCS; principal; 2017-05-15)
PROC: 0BC98ZZ Extirpation of Matter from Lingula Bronchus, Via Natural or Artificial Opening Endoscopic (ICD-10-PCS; principal; 2017-05-15)
PROC: 0BCB8ZZ Extirpation of Matter from Left Lower Lobe Bronchus, Via Natural or Artificial Opening Endoscopic (ICD-10-PCS; principal; 2017-05-15)
PROC: 0BC18ZZ Extirpation of Matter from Trachea, Via Natural or Artificial Opening Endoscopic (ICD-10-PCS; principal; 2017-05-15)
PROC: 0BC78ZZ Extirpation of Matter from Left Main Bronchus, Via Natural or Artificial Opening Endoscopic (ICD-10-PCS; principal; 2017-05-15)
PROC: 0BC48ZZ Extirpation of Matter from Right Upper Lobe Bronchus, Via Natural or Artificial Opening Endoscopic (ICD-10-PCS; principal; 2017-05-15)
PROC: 0BC58ZZ Extirpation of Matter from Right Middle Lobe Bronchus, Via Natural or Artificial Opening Endoscopic (ICD-10-PCS; principal; 2017-05-15)
PROC: 0BC88ZZ Extirpation of Matter from Left Upper Lobe Bronchus, Via Natural or Artificial Opening Endoscopic (ICD-10-PCS; principal; 2017-05-15)
DX: A41.9 Sepsis, unspecified organism (principal); J18.9 Pneumonia, unspecified organism; E87.2 Acidosis; T17.590A Other foreign object in bronchus causing asphyxiation, initial encounter; E44.0 Moderate protein-calorie malnutrition; J45.51 Severe persistent asthma with (acute) exacerbation; E66.01 Morbid (severe) obesity due to excess calories; Z68.43 Body mass index [BMI] 50.0-59.9, adult; J04.10 Acute tracheitis without obstruction; Z78.9 Other specified health status; J30.2 Other seasonal allergic rhinitis; J20.9 Acute bronchitis, unspecified; Z88.0 Allergy status to penicillin; Z90.49 Acquired absence of other specified parts of digestive tract; Z98.51 Tubal ligation status; Z83.3 Family history of diabetes mellitus; Z82.49 Family history of ischemic heart disease and other diseases of the circulatory system; Z82.3 Family history of stroke; E55.9 Vitamin D deficiency, unspecified; R73.9 Hyperglycemia, unspecified; F41.9 Anxiety disorder, unspecified; X58.XXXA Exposure to other specified factors, initial encounter; Y93.89 Activity, other specified; Y92.89 Other specified places as the place of occurrence of the external cause; Y99.8 Other external cause status

== ENCOUNTER → 2017-05-30 | Outpatient (CLI) | payer OTHER ==
[~2017-05-30] MED LIST changes: +ATIVAN2 M1 PO; +LEVAQUIN750 M1 PO; +SINGULAIR10 M1 PO; +Solu-Medrol IV
[2017-05-30 10:36] LABS: HEMATOCRIT 42.8 % (37.0-47.0); HEMOGLOBIN 14.7 g/dl (12.0-16.0); MEAN CELL VOLUME 86.6 fl (81.0-99.0); MEAN CORPUSCULAR HGB 29.8 pg (27.0-31.0); MEAN CORPUSCULAR HGB CONC 34.3 g/dl (33.0-37.0); MEAN PLATELET VOLUME 9.9 fl (9.6-12.3); RED BLOOD COUNT 4.94 10*6/uL (4.10-5.10); RED CELL DISTRI WIDTH 13.2 % (0-14.5); WHITE BLOOD COUNT 11.5 10*3/uL (4.8-10.8)
[2017-05-30 10:41] LABS: BUN 25 mg/dl (7-24); CHLORIDE 103 mmol/L (98-107); CHOLESTEROL 206 mg/dL (<200); POTASSIUM 3.7 mmol/L (3.5-5.1); SGOT/AST 18 IU/L (3-35); SGPT/ALT 38 U/L (12-78); SODIUM 138 mmol/L (136-145); TRIGLYCERIDES 215 mg/dl (<150); VLDL CHOLESTEROL 43 mg/dL (6-40)
[2017-05-30 10:48] LABS: ALKALINE PHOSPHATASE 46 U/L (45-117); CPK 68 U/L (26-192); HDL CHOLESTEROL 64 mg/dl (40-60); LDL CHOLESTEROL 99 mg/dL (9-159); TOTAL PROTEIN 6.3 gm/dL (6.4-8.2)
== END | disposition home or self-care (01) ==
LOC: LAB 09:46
PROVIDERS: Family Medicine
DX: J45.909 Unspecified asthma, uncomplicated (principal); R06.02 Shortness of breath; F41.1 Generalized anxiety disorder; E74.09 Other glycogen storage disease; E66.9 Obesity, unspecified; R25.2 Cramp and spasm

== ENCOUNTER 2017-06-12 10:29 | Emergency (ER) | payer OTHER ==
[~2017-06-12] VITALS: Ht 167.6 cm; Wt 145.1 kg
[2017-06-12 11:21] LABS: BASO % 0.5 % (0.0-1.0); EOS % 0.5 % (1.0-4.0); HEMATOCRIT 37.2 % (37.0-47.0); HEMOGLOBIN 12.4 g/dl (12.0-16.0); LYMPH # 2.2 10*3/uL (1.3-4.4); LYMPH % 33.2 % (27.0-41.0); MEAN CELL VOLUME 86.9 fl (81.0-99.0); MEAN CORPUSCULAR HGB CONC 33.3 g/dl (33.0-37.0); MEAN PLATELET VOLUME 10.2 fl (9.6-12.3); MONO # 0.7 10*3/uL (0.1-1.0); MONO % 10.6 % (3.0-9.0); NEUT # 3.6 10*3/uL (2.3-7.9); NEUT % 53.8 % (47.0-73.0); NUCLEATED RED BLOOD CELL 0.3 % (0.0-0.0); PLATELET COUNT AUTOMATED 120 10*3/uL (130-400); RED BLOOD COUNT 4.28 10*6/uL (4.10-5.10); RED CELL DISTRI WIDTH 13.7 % (0-14.5); WHITE BLOOD COUNT 6.6 10*3/uL (4.8-10.8)
[2017-06-12 11:38] LABS: BUN 15 mg/dl (7-24); CHLORIDE 105 mmol/L (98-107); CREATININE 0.91 mg/dL (0.55-1.02); POTASSIUM 3.7 mmol/L (3.5-5.1); SODIUM 139 mmol/L (136-145)
[2017-06-12 11:40] LABS: TROPONIN I < 0.015 ng/ml (<0.045)
[2017-06-12 11:51] LABS: ACT PARTIAL THROMBO TIME 22.4 SECONDS (20.8-31.5)
[2017-06-12 15:21] VITALS: BP 140/89
== END 2017-06-12 16:12 | disposition short-term general hospital (02) ==
LOC: ED 10:29
PROVIDERS: Emergency Medicine
DX: I82.4Z2 Acute embolism and thrombosis of unspecified deep veins of left distal lower extremity (principal); I26.92 Saddle embolus of pulmonary artery without acute cor pulmonale; J45.909 Unspecified asthma, uncomplicated; F41.9 Anxiety disorder, unspecified; Z88.0 Allergy status to penicillin; Z79.899 Other long term (current) drug therapy; Z90.49 Acquired absence of other specified parts of digestive tract; Z90.89 Acquired absence of other organs; Z98.51 Tubal ligation status

== ENCOUNTER 2017-06-18 22:41 | Inpatient (IN) | payer OTHER ==
[~2017-06-18] VITALS: Ht 167.6 cm; Wt 147.4 kg
--- NOTE | ~2017-06-18 | CON ---
[place], [place] REPORT OF CONSULTATION NAME: SUZY BRANCH [facility] #: [id number] UNIT #: [id number] ROOM: 401 DOCTOR: KOREY ACOSTA MD BIRTHDATE: [birth year] DOS: 06/19/2017 PULMONARY CONSULTATION, EVALUATION, AND MANAGEMENT CONSULTATION REQUESTED BY: Hospitalist services. REASON FOR CONSULTATION: Assessment of symptoms of shortness of breath. HISTORY OF PRESENT ILLNESS: This is a 47-year-old white female patient who has been known to me. The patient has been previously hospitalized in this hospital in May 2017, treated for acute exacerbation of bronchial asthma, acute tracheobronchitis, had a therapeutic bronchoscopy done as well. The patient presented to the Emergency Room on 06/12/2017 as the patient was noted with severe increased shortness of breath occurring at home. She was also noted with weakness, fatigue, as well as pain described for the patient, especially in the lower leg. The pain was also reported in the upper back of the chest. The patient has been assessed in the Emergency Room and confirmed to have a deep venous thrombosis of the lower extremities as well as bilateral submassive pulmonary embolism. The patient was transferred to the [facility] where she remained for about 5 days. The patient has been treated with unfractionated therapeutic heparin during the admission and also started on anticoagulation with Coumadin. The patient was discharged home with INR of 1.2 at that time on the Lovenox shots 160 mg subcutaneously b.i.d. and Coumadin dose as well. The INR of the patient last one described was 4.1 the patient. She presented to the Emergency Room. The patient stated that she could not breathe suddenly last night. Shortness of breath of the patient has been noted with exertion as well. Shortness of breath has been noted somewhat decreased from admission last night. She has been noted with a nonproductive cough, mild to moderate intermittently in the past 3 days. Denies any wheezing. Denies any further episodes of chest pain. Denies symptoms of hemoptysis. Denies any chest trauma. REVIEW OF SYSTEMS: CONSTITUTIONAL: Fatigue and tiredness reported. No symptoms of fever or chills. EYES: Denies any burning, redness, or tenderness. EARS, NOSE, AND THROAT: Denies sore throat, hoarseness, otalgia, postnasal drainage, or epistaxis. CARDIOVASCULAR: Denies edema, anginal pain, or palpitation. The patient has reported edema of the lower extremities, greater of the left lower extremity than the right lower extremity. Pain was also reported in the left thigh at times. Pain was described to be crampy. GENITOURINARY: No dysuria, suprapubic pain, hematuria, or flank pain. MUSCULOSKELETAL: Denies acute joint pain. SKIN: Chronic changes of the skin, long-term without any ulcer or rashes reported. CENTRAL NERVOUS SYSTEM: General weakness and fatigue noted with some dizziness at times. Denies any focal neurologic deficit. Denies tingling sensation of the extremities. [place], [place] REPORT OF CONSULTATION NAME: SUZY BRANCH UNIT #: [id number] ROOM: [facility] DOCTOR: KOREY ACOSTA MD BIRTHDATE: [birth year] Remaining systems were all reviewed with the patient, they were noted all negative. PAST MEDICAL HISTORY: The patient was known to me with: 1. History of uncomplicated severe persistent bronchial asthma. 2. History of severe general anxiety disorder as well. 3. Severe morbid obesity as well. 4. Seasonal allergic rhinitis. 5. Vitamin D deficiency. 6. Pulmonary embolism was noted at this time bilaterally and deep venous thrombosis of the lower extremities that was diagnosed on 06/12/2017. 7. History of chronic hypoxic respiratory failure, currently requiring use of oxygen supplementation 2 liters nasal cannula. PAST SURGICAL HISTORY: 1. Endometrial ablation. 2. Tonsillectomy. 3. Tubal ligation. 4. Cholecystectomy. 5. Therapeutic bronchoscopy, the last one done for the patient in May 2017. SOCIAL HISTORY: The patient is a nonsmoker, lives at home. 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 FAMILY HISTORY: Father is 69 years old with history of diabetes and hypertension. Mother is 65 years old with history of diverticulosis and IBS. CURRENT MEDICATIONS: Current medications administered for the patient noted with use of: 1. Coumadin 6 mg daily. 2. Carafate 1 gram a.c. and at bedtime, 3. Omeprazole 20 mg daily. 4. Singulair 10 mg daily. 5. Luvox 50 mg daily. 6. Dulera 200/5 two puffs b.i.d. 7. Xopenex 1.25 mg q.4h. with the use of the Atrovent unit dose at the same time. 8. Lorazepam 1 mg q.6h. p.r.n. for anxiety. 9. Temazepam 15 mg p.r.n. 10. Enoxaparin 160 mg subcutaneous shots, total of 9 doses will be further given. LABORATORY DATA AND IMAGING STUDIES: The ultrasound of the lower extremities of 06/12/2017 noted with evidence of acute deep venous thrombosis involving the left common femoral, superficial femoral, popliteal, anterior tibial, and peroneal veins. The CBC of the patient this morning in the Emergency Room admission, hemoglobin 10.4, hematocrit 31.8, WBC count normal, platelet count was normal. CMP of the patient this morning shows glucose 100, BUN 7, creatinine 1.20. PT/PTT were noted with INR 2.1. PTT of 48. Troponin of the patient is normal this morning. Second set troponin normal. CMP of the patient [place], [place] REPORT OF CONSULTATION NAME: SUZY BRANCH UNIT #: [id number] ROOM: [facility] DOCTOR: HARRIET COPELAND MD,[facility] BIRTHDATE: [birth year] this morning, BUN 17, creatinine 1.05. CBC this morning repeated again, hemoglobin 9.9, hematocrit 30.9, platelet count 231,000. The chest x-ray of the patient that was done was without any acute abnormality this morning of admission. Chest x-ray from 06/12/2017 was ere noted clear of any acute abnormal infiltration. CT of the chest of the patient was personally reviewed, the first CT scan of 06/12/2017 for emergency of the patient shows evidence of acute saddle pulmonary embolism, which has noted bilaterally with minimal flattening of intraventricular septum, suggestive of moderate to large clot burden for this patient with acute pulmonary embolism with submassive pulmonary embolism. The subsegmental branches of the lower lobe were also involved. The patient had a CTA of the chest completed again early this morning, which was personally reviewed, it shows the saddle embolus of the patient was noted to be improving and currently noted the bilateral main pulmonary arteries with subsegmental pulmonary emboli, noted bilaterally . There were no findings of acute pulmonary infarct or pulmonary infiltration such as acute pneumonia. IMPRESSION: 1. The patient who has been currently noted with current chronic hypoxic respiratory failure, use of oxygen 2 liters nasal cannula with increased shortness of breath related to current pulmonary embolism as the main cause. The patient does not have any finding currently consistent with acute exacerbation of bronchial asthma. The shortness of breath reported by the patient is most likely related to the pulmonary hypertension with the current pulmonary embolism as well. 2. Evidence of deep venous thrombosis noted, extensive thrombosis of the patient with edema of the right lower extremity still noted. 3. The patient with severe morbid obesity history as well with BMI of 52. 4. History of general anxiety disorder as well. PLAN OF MANAGEMENT: At this time, the patient is noted on the correct treatment for the pulmonary embolism and the patient remains stable, would not require any IVC filter. Continue anticoagulation, maintain therapeutic INR for this patient. The Lovenox remaining injections will be given to the patient while closely monitoring PT/INR. The patient does not have any acute pneumonia and would not require any antibiotic coverage. Bronchodilators will be continued to help improve the shortness of breath and bronchospasm if it occurs. Usual ambulation would be encouraged for the patient and she was asked not to do any squatting or any heavy exercise at the present time. The pulmonary hypertension should be a transient thing for this patient and should resolve over a period of time. However, the monitor of the patient would be continued. Echocardiogram should be repeated for the patient in about 3 months. Obtain the medical record of the patient from [facility] for assessment of the hypercoagulability assessment. If it is not performed for the patient, certainly the hypercoagulability panel will be ordered. Usual care, other supportive therapy, plan of management and care. Titrate oxygen supplementation, maintain saturation 92% or greater. Watch for any post-thrombotic phlebitis of the left lower extremity. Other supportive plan of management and care plan and therapies. Thanks for allowing me to participate in the care of this patient. [place], [place] REPORT OF CONSULTATION NAME: JOSE CARLOSSUZY Mando UNIT #: [id number] ROOM: [facility] DOCTOR: HARRIET COPELAND MD,KOREY BIRTHDATE: [birth year] KOREY LARIOS MD CM:CONSTR:REPORT OF CONSULTATION 1039 06/20/17 0231 interface
--- NOTE | ~2017-06-18 | PR ---
[place], [place] PROGRESS NOTE NAME: SUZY BRANCH [facility] #: [id number] UNIT #: [id number] ROOM: 401 DOCTOR: HARRIET COPELAND MD,KOREY BIRTHDATE: [birth year] DOS: 06/20/2017 SUBJECTIVE: The patient has been noted with increased pain of the left lower extremity with increased edema of lower extremity. Continue the Lovenox subcutaneous injection. The patient is on 60 mg b.i.d. and oral anticoagulation with Coumadin. Shortness of breath has been noted stable. She does complain of nonproductive cough. Noted without any symptoms of chest pain at the present time. She was noted with low grade fever previously, which has been resolved at this time. She denies symptoms of headache. Denies symptoms of dizziness. General weakness and fatigue were reported. Denies symptoms of nausea, vomiting, diarrhea or any abdominal pain. The past family, social and medical history were reviewed for the patient and it remains unchanged from previous noted consultation. The remaining review of system was completed. They were noted all negative. OBJECTIVE: VITAL SIGNS: For the patient, which has been recorded showed the temperature noted normal, respiratory rate 20, heart rate 103 with mild sinus tachycardia, blood pressure ____. Normal heart rate of the patient noted otherwise. The pulse oxygen saturation on 2 liters nasal cannula was recorded as saturation oxygen 95%. HEENT: Head was atraumatic. Eyes nonicterus. NECK: Supple. CARDIOVASCULAR SYSTEM: S1, S2 audible. LUNGS: The patient was noted without any wheeze or crackles. There were no added sounds. ABDOMEN: Noted chronic severe obesity. Bowel sounds present. EXTREMITIES: The patient was noted with significant edema, which has been noted further increased in the left lower extremity as compared with the previous examination yesterday. The right lower extremity shows very mild edema. SKIN: Visible skin noted chronic changes in bilateral lower extremities. There were no ulcers or any rashes. CENTRAL NERVOUS SYSTEM: The patient's cranial nerves 2-12 intact. No focal deficit. MUSCULOSKELETAL: Without any acute deformities. LABORATORY DATA: PT and INR this morning was noted as 2.2 that was normal. X-ray of the lumbar spine that was done yesterday was noted as normal study. IMPRESSION: 1. The patient has been noted with extensive deep venous thrombosis of the left lower extremity with persistent pain. Current appropriate anticoagulation noted. 2. The patient has resolution of saddle pulmonary embolism. Noted small bilateral pulmonary embolus. Stable chronic hypoxic respiratory failure. 3. Severe morbid obesity. 4. Suspected obstructive sleep apnea disorder, requires further outpatient assessment. 5. Skin changes, the patient has recurrent venous flow obstruction in the left lower extremity. [place], [place] PROGRESS NOTE NAME: SUZY BRANCH UNIT #: [id number] ROOM: 401 DOCTOR: HARRIET COPELAND MD,KOREY BIRTHDATE: [birth year] PLAN OF MANAGEMENT: The patient will benefit from thrombolysis, which is to be done by the Interventional Radiology services to prevent the posterior thrombotic symptom and pain in the left lower extremity at her age. The patient will continue anticoagulation at this time. The case has been discussed in detail with the patient, with the staff Interventional Radiology Services at [facility], Dr. Horton. The patient will be transferred to [facility] for further care. The case was also discussed with the accepting physician, ____. The arrangement for the patient transfer will be made. The primary care physician was also made aware of that and agreed with the decision of transfer. Further plan of management of the patient as previously will be continued in the meantime as long as the patient remains in this hospital. KOREY LARIOS MD CM:PNTRANS [id number] KOREY COPELAND MD 06/21/17 0013 interface
[~2017-06-18 22:41] MED LIST changes: +ENOXAPARIN60 MG/0.2 SQ
[2017-06-18] MEDS ORDERED: WARFARIN SODIUM6 MG PO (22:48)
[2017-06-18 22:53] VITALS: BP 163/91
[2017-06-18 23:10] LABS: BASO % 0.3 % (0.0-1.0); EOS % 0.4 % (1.0-4.0); HEMATOCRIT 31.8 % (37.0-47.0); HEMOGLOBIN 10.4 g/dl (12.0-16.0); LYMPH % 39.2 % (27.0-41.0); MEAN CELL VOLUME 90.1 fl (81.0-99.0); MEAN CORPUSCULAR HGB 29.5 pg (27.0-31.0); MEAN CORPUSCULAR HGB CONC 32.7 g/dl (33.0-37.0); MEAN PLATELET VOLUME 10.5 fl (9.6-12.3); MONO # 0.6 10*3/uL (0.1-1.0); MONO % 7.8 % (3.0-9.0); NEUT # 3.9 10*3/uL (2.3-7.9); NEUT % 50.5 % (47.0-73.0); NUCLEATED RED BLOOD CELL 0.1 10*3/uL (0.0-0.0); NUCLEATED RED BLOOD CELL 0.8 % (0.0-0.0); PLATELET COUNT AUTOMATED 212 10*3/uL (130-400); RED BLOOD COUNT 3.53 10*6/uL (4.10-5.10); RED CELL DISTRI WIDTH 15.1 % (0-14.5); WHITE BLOOD COUNT 7.7 10*3/uL (4.8-10.8)
[2017-06-18 23:24] VITALS: BP 122/72
[2017-06-18 23:27] LABS: ACT PARTIAL THROMBO TIME 48.7 SECONDS (20.8-31.5); ALBUMIN 3.1 gm/dl (3.1-4.5); ALKALINE PHOSPHATASE 69 U/L (45-117); BUN 7 mg/dl (7-24); CHLORIDE 104 mmol/L (98-107); INTERNATIONAL NORM RATIO 2.1 (2.0-3.5); POTASSIUM 3.5 mmol/L (3.5-5.1); SGOT/AST 29 IU/L (3-35); SGPT/ALT 49 U/L (12-78); SODIUM 140 mmol/L (136-145); TOTAL PROTEIN 6.8 gm/dL (6.4-8.2)
[2017-06-18 23:28] LABS: TROPONIN I < 0.015 ng/ml (<0.045)
[2017-06-18 23:42] VITALS: BP 136/80
[2017-06-19] VITALS (10 sets, daily range): BP systolic 105–149; BP diastolic 58–97
[2017-06-19] MEDS ORDERED: CARAFATE1 G1 PO (05:01)
[2017-06-19] MEDS ORDERED: BREO ELLIPTA 11 EACH INH (05:01)
[2017-06-19] MEDS ORDERED: OMEPRAZOLE20 M2 PO (05:03)
[2017-06-19] MEDS ORDERED: VENTOLIN 02.5 MG/3 M INH (05:03)
[2017-06-19] MEDS ORDERED: DUONEB 3 MG/3 ML3 M1 INH (05:05)
[2017-06-19 05:42] LABS: ALKALINE PHOSPHATASE 64 U/L (45-117); BUN 7 mg/dl (7-24); CHLORIDE 103 mmol/L (98-107); CREATININE 1.05 mg/dL (0.55-1.02); PHOSPHOROUS 4.5 mg/dL (2.5-4.9); POTASSIUM 3.5 mmol/L (3.5-5.1); SGOT/AST 24 IU/L (3-35); SGPT/ALT 44 U/L (12-78); SODIUM 141 mmol/L (136-145); TOTAL PROTEIN 6.3 gm/dL (6.4-8.2)
[2017-06-19 06:04] LABS: BASO % 0.4 % (0.0-1.0); EOS % 0.4 % (1.0-4.0); HEMATOCRIT 30.9 % (37.0-47.0); HEMOGLOBIN 9.9 g/dl (12.0-16.0); LYMPH # 2.5 10*3/uL (1.3-4.4); LYMPH % 33.1 % (27.0-41.0); MEAN CELL VOLUME 92.2 fl (81.0-99.0); MEAN CORPUSCULAR HGB 29.6 pg (27.0-31.0); MEAN PLATELET VOLUME 10.4 fl (9.6-12.3); MONO # 0.8 10*3/uL (0.1-1.0); MONO % 10.5 % (3.0-9.0); NEUT # 4.1 10*3/uL (2.3-7.9); NEUT % 53.3 % (47.0-73.0); NUCLEATED RED BLOOD CELL 0.1 10*3/uL (0.0-0.0); NUCLEATED RED BLOOD CELL 0.7 % (0.0-0.0); PLATELET COUNT AUTOMATED 231 10*3/uL (130-400); RED BLOOD COUNT 3.35 10*6/uL (4.10-5.10); RED CELL DISTRI WIDTH 15.4 % (0-14.5); WHITE BLOOD COUNT 7.7 10*3/uL (4.8-10.8)
[2017-06-19 06:23] LABS: INTERNATIONAL NORM RATIO 2.1 (2.0-3.5)
[2017-06-19 13:01] LABS: BILIRUBIN NEGATIVE (NEGATIVE); BLOOD NEGATIVE (NEGATIVE); CLARITY SL CLOUDY (CLEAR); COLOR YELLOW (YELLOW); GLUCOSE NEGATIVE (NEGATIVE); KETONE NEGATIVE (NEGATIVE); LEUKO ESTERASE NEGATIVE (NEGATIVE); NITRITE NEGATIVE (NEGATIVE); PH 5.5 (5.0-9.0); UROBILINOGEN 0.2 E.U./dl (0.2-1.0)
[2017-06-19 13:39] LABS: BACTERIA TRACE; MUCOUS TRACE
[2017-06-20] VITALS: BP 125/66
[2017-06-20 07:17] VITALS: BP 100/60
[2017-06-20 11:00] LABS: INTERNATIONAL NORM RATIO 2.2 (2.0-3.5)
[2017-06-20] MEDS ORDERED: LEVALBUTER1.25 MG/4 NEB (11:25)
== END 2017-06-20 12:11 | disposition short-term general hospital (02) | DRG 299 ==
LOC: ED 22:41 → EDHOLD 06-19 03:49 → 4E 06-19 03:49
PROVIDERS: Emergency Medicine Emergency Medical Services; Family Medicine; Registered Nurse
DX: I82.403 Acute embolism and thrombosis of unspecified deep veins of lower extremity, bilateral (principal); I26.92 Saddle embolus of pulmonary artery without acute cor pulmonale; J96.11 Chronic respiratory failure with hypoxia; E44.0 Moderate protein-calorie malnutrition; I27.82 Chronic pulmonary embolism; I82.502 Chronic embolism and thrombosis of unspecified deep veins of left lower extremity; E66.01 Morbid (severe) obesity due to excess calories; J45.909 Unspecified asthma, uncomplicated; F41.1 Generalized anxiety disorder; E55.9 Vitamin D deficiency, unspecified; G47.33 Obstructive sleep apnea (adult) (pediatric); Z90.49 Acquired absence of other specified parts of digestive tract; Z90.89 Acquired absence of other organs; Z88.0 Allergy status to penicillin; Z82.49 Family history of ischemic heart disease and other diseases of the circulatory system; Z83.3 Family history of diabetes mellitus

== ENCOUNTER → 2017-07-03 | Outpatient (CLI) | payer OTHER ==
[~2017-07-03] MED LIST changes: +BREO ELLIPTA 11 EACH INH; +CARAFATE1 G1 PO; +LEVALBUTER1.25 MG/4 NEB; +OMEPRAZOLE20 M2 PO; +VENTOLIN 02.5 MG/3 M INH; +WARFARIN SODIUM6 MG PO
[2017-07-04 05:11] LABS: CA 15-3 143404 35.2 U/mL (0.0-25.0); CANCER ANTIGEN (CA) 125 002303 37.7 U/mL (0.0-38.1)
[2017-07-04 14:08] LABS: ANTICARDIOLIPIN AB, IGG, QN <9 GPL U/mL (0-14); ANTICARDIOLIPIN AB, IGM, QN 47 MPL U/mL (0-12); CARDIOLIPIN AB IGA 161836 <9 APL U/mL (0-11)
== END | disposition home or self-care (01) ==
LOC: LAB 11:51
PROVIDERS: Internal Medicine Hematology & Oncology
DX: I82.409 Acute embolism and thrombosis of unspecified deep veins of unspecified lower extremity (principal)

== ENCOUNTER → 2017-07-05 | Outpatient (CLI) | payer OTHER | END | disposition home or self-care (01) | LOC: MAMMO 01:04 | DX: Z12.31 Encounter for screening mammogram for malignant neoplasm of breast (principal); R10.819 Abdominal tenderness, unspecified site; R10.2 Pelvic and perineal pain ==

== ENCOUNTER → 2017-07-13 | Outpatient (CLI) | payer OTHER ==
--- NOTE | ~2017-07-13 | PF ---
[place], [place] PULMONARY FUNCTION TEST [id number] UNIT #: [id number] ROOM: DOCTOR: HARRIET COPELAND MD,KOREY BIRTHDATE: [birth year] DOS: 07/13/2017 Study was ordered from my office. HISTORY: The patient is a 47-year-old female, height of 66 inches, weight of 325, presented for pulmonary function testing with history of bronchial asthma. Symptoms of shortness breath with exertion are noted, past tobacco use noted as 1/4 pack of cigarettes per day for 8 years. Dispo tobacco cessation was done 20 years ago. SPIROMETRY: The FVC was recorded 3.66 liters, 95% predicted value. FEV1 was noted as 2.86 liters as 93% predicted value. The ratio of FEV1/FVC was recorded as 78%. No significant improvement of the patient changes noted in postbronchodilator test. Flow volume was suggestive of mild obstructive airway pattern. The lung volumes, thoracic gas volume recorded as 57%, residual volume 78%, total lung capacity of 96%. Lung volumes were noted normal. The patient's lung diffusion recorded as 71%, mildly decreased without correction of carbon monoxide hemoglobin values. The patient's airway resistance and specific conductance were both noted as normal with partial improvement after bronchodilators. FINAL IMPRESSION: The test was suggestive of mild reversible obstructive lung disease at this time. KOREY LARIOS MD CM:PFREPORT:PULMONARY FUNCTION TEST 1019 KOREY COPELAND MD
== END ==
LOC: CP 12:43
DX: J45.50 Severe persistent asthma, uncomplicated (principal)

== ENCOUNTER → 2017-08-09 | Outpatient (CLI) | payer OTHER | END | disposition home or self-care (01) | LOC: US 12:56 | DX: I82.4Z2 Acute embolism and thrombosis of unspecified deep veins of left distal lower extremity (principal) ==

== ENCOUNTER 2017-12-07 19:07 | Emergency (ER) | payer OTHER ==
[~2017-12-07] VITALS: Ht 172.7 cm; Wt 154.2 kg
--- NOTE | ~2017-12-07 | EKG ---
[place], [place] ELECTROCARDIOGRAM REPORT NAME: SUZY BRANCH UNIT #: [id number] ROOM: DOCTOR: YOEL DRAFT REPORT BIRTHDATE: [birth year] [facility] Test Date: 2017-12-07 Test Time: 19:09:46 Pat Name: SUZY BRANCH Department: Room: Gender: F Cruise Guide: GREG : 1970 Requested By: QUETA RODRIGUEZ Order Number: [id number] Reading MD: Measurements Intervals [place] Rate: 83 P: 25 MN: 147 QRS: -25 QRSD: 97 T: 36 QT: 387 QTc: 455 Interpretive Statements Sinus rhythm Borderline left axis deviation Low voltage, extremity and precordial leads No previous ECG available for comparison CM:EKGRPT:ELECTROCARDIOGRAM REPORT 08 1614 QUETA PITTS DRAFT REPORT QUETA RODRIGUEZ DO
--- NOTE | ~2017-12-07 | EKG ---
[place], [place] ELECTROCARDIOGRAM REPORT NAME: SUZY BRANCH UNIT #: [id number] ROOM: DOCTOR: YOEL DRAFT REPORT BIRTHDATE: [birth year] [facility] Test Date: 2017-12-07 Test Time: 21:55:11 Pat Name: SUZY BRANCH Department: Room: Gender: F Director Medical Economics: DAVE FIGUEROA : 1970 Requested By: QUETA RODRIGUEZ Order Number: [id number] Reading MD: Measurements Intervals [place] Rate: 67 P: 39 HI: 160 QRS: -30 QRSD: 98 T: 27 QT: 426 QTc: 450 Interpretive Statements Sinus rhythm Left axis deviation Low voltage, precordial leads Consider anterior infarct No previous ECG available for comparison CM:EKGRPT:ELECTROCARDIOGRAM REPORT 54 445 QUETA PITTS DRAFT REPORT QUETA RODRIGUEZ DO
[2017-12-07 19:10] VITALS: BP 139/80
[2017-12-07 19:39] LABS: BASO % 0.3 % (0.0-1.0); EOS # 0.1 10*3/uL (0.0-0.4); EOS % 1.1 % (1.0-4.0); HEMATOCRIT 42.6 % (37.0-47.0); HEMOGLOBIN 13.6 g/dl (12.0-16.0); LYMPH # 2.8 10*3/uL (1.3-4.4); LYMPH % 29.2 % (27.0-41.0); MEAN CELL VOLUME 87.1 fl (81.0-99.0); MEAN CORPUSCULAR HGB 27.8 pg (27.0-31.0); MEAN CORPUSCULAR HGB CONC 31.9 g/dl (33.0-37.0); MEAN PLATELET VOLUME 10.4 fl (9.6-12.3); MONO # 0.6 10*3/uL (0.1-1.0); MONO % 6.2 % (3.0-9.0); NEUT % 62.8 % (47.0-73.0); PLATELET COUNT AUTOMATED 238 10*3/uL (130-400); RED BLOOD COUNT 4.89 10*6/uL (4.10-5.10); RED CELL DISTRI WIDTH 13.6 % (0-14.5); WHITE BLOOD COUNT 9.5 10*3/uL (4.8-10.8)
[2017-12-07 19:50] LABS: ACT PARTIAL THROMBO TIME 23.6 SECONDS (20.8-31.5); INTERNATIONAL NORM RATIO 0.9 (2.0-3.5)
[2017-12-07 19:58] LABS: ALBUMIN 3.7 gm/dl (3.1-4.5); ALKALINE PHOSPHATASE 83 U/L (45-117); BUN 16 mg/dl (7-24); CHLORIDE 101 mmol/L (98-107); CREATININE 1.08 mg/dL (0.55-1.02); POTASSIUM 3.9 mmol/L (3.5-5.1); SGOT/AST 17 IU/L (3-35); SGPT/ALT 30 U/L (12-78); SODIUM 137 mmol/L (136-145)
[2017-12-07 20:00] LABS: TROPONIN I < 0.015 ng/ml (<0.045)
== END 2017-12-07 23:34 | disposition home or self-care (01) ==
LOC: ED 19:07
PROVIDERS: Student in an Organized Health Care Education/Training Program
DX: R07.9 Chest pain, unspecified (principal); R11.0 Nausea; J45.909 Unspecified asthma, uncomplicated; E66.01 Morbid (severe) obesity due to excess calories; Z88.0 Allergy status to penicillin; Z86.718 Personal history of other venous thrombosis and embolism; Z79.899 Other long term (current) drug therapy; Z79.02 Long term (current) use of antithrombotics/antiplatelets

== ENCOUNTER → 2017-12-28 | Outpatient (CLI) | payer OTHER ==
[~2017-12-28] MED LIST changes: +CYCLOBENZAPRINE10 MG PO; +ELIQUIS5 M1 PO; +PERCOCET 5-3251 EACH PO
== END | disposition home or self-care (01) ==
LOC: LAB 10:27
DX: R05 Cough (principal)

== ENCOUNTER 2018-01-28 17:25 | Emergency (ER) | payer OTHER ==
[~2018-01-28] VITALS: Ht 167.6 cm; Wt 153.8 kg
[~2018-01-28 17:25] MED LIST changes: -CYCLOBENZAPRINE10 MG PO; -ELIQUIS5 M1 PO; -PERCOCET 5-3251 EACH PO
[2018-01-28] MEDS ORDERED: ELIQUIS5 M1 PO (17:51)
[2018-01-28 21:51] VITALS: BP 127/79
[2018-01-28] MEDS ORDERED: PERCOCET 5-3251 EACH PO (22:13)
[2018-01-28] MEDS ORDERED: CYCLOBENZAPRINE10 MG PO (22:13)
== END 2018-01-28 22:23 | disposition home or self-care (01) ==
LOC: ED 17:25
DX: S39.012A Strain of muscle, fascia and tendon of lower back, initial encounter (principal); J45.909 Unspecified asthma, uncomplicated; E66.01 Morbid (severe) obesity due to excess calories; Z86.718 Personal history of other venous thrombosis and embolism; Z88.0 Allergy status to penicillin; Z79.899 Other long term (current) drug therapy

== ENCOUNTER → 2018-02-16 | Outpatient (CLI) | payer OTHER ==
[~2018-02-16] MED LIST changes: +CYCLOBENZAPRINE10 MG PO; +ELIQUIS5 M1 PO; +PERCOCET 5-3251 EACH PO
== END | disposition home or self-care (01) ==
LOC: US 11:27
DX: M79.604 Pain in right leg (principal); M79.605 Pain in left leg; M79.89 Other specified soft tissue disorders

== ENCOUNTER 2018-09-30 22:57 | Emergency (ER) | payer OTHER ==
[~2018-09-30] VITALS: Ht 167.6 cm; Wt 162.1 kg
[~2018-09-30 22:57] MED LIST changes: +DEXILANT60 M1 PO
[2018-09-30 23:01] VITALS: BP 165/68
[2018-10-01 00:20] LABS: BASO % 0.3 % (0.0-1.0); EOS # 0.1 10*3/uL (0.0-0.4); EOS % 0.9 % (1.0-4.0); HEMATOCRIT 34.5 % (37.0-47.0); HEMOGLOBIN 11.5 g/dl (12.0-16.0); LYMPH # 2.9 10*3/uL (1.3-4.4); LYMPH % 32.3 % (27.0-41.0); MEAN CELL VOLUME 87.3 fl (81.0-99.0); MEAN CORPUSCULAR HGB 29.1 pg (27.0-31.0); MEAN CORPUSCULAR HGB CONC 33.3 g/dl (33.0-37.0); MEAN PLATELET VOLUME 10.7 fl (9.6-12.3); MONO # 0.8 10*3/uL (0.1-1.0); MONO % 8.7 % (3.0-9.0); NEUT # 5.2 10*3/uL (2.3-7.9); NEUT % 57.4 % (47.0-73.0); PLATELET COUNT AUTOMATED 242 10*3/uL (130-400); RED BLOOD COUNT 3.95 10*6/uL (4.10-5.10); RED CELL DISTRI WIDTH 13.5 % (0-14.5)
[2018-10-01 00:20] LABS: ALBUMIN 3.2 gm/dl (3.1-4.5); ALKALINE PHOSPHATASE 80 U/L (45-117); BUN 16 mg/dl (7-24); CHLORIDE 107 mmol/L (98-107); CREATININE 0.96 mg/dL (0.55-1.02); POTASSIUM 3.9 mmol/L (3.5-5.1); SGOT/AST 19 IU/L (3-35); SGPT/ALT 34 U/L (12-78); SODIUM 140 mmol/L (136-145); TOTAL PROTEIN 6.5 gm/dL (6.4-8.2)
[2018-10-01] MEDS ORDERED: SEPTDS PO (00:39)
[2018-10-01] MEDS ORDERED: CEPHALEXIN500 M1 PO (00:39)
== END 2018-10-01 01:15 | disposition home or self-care (01) ==
LOC: ED 22:57
PROVIDERS: Nurse Practitioner Family
DX: L02.416 Cutaneous abscess of left lower limb (principal); L03.116 Cellulitis of left lower limb; G47.33 Obstructive sleep apnea (adult) (pediatric); E66.01 Morbid (severe) obesity due to excess calories; J45.909 Unspecified asthma, uncomplicated; Z86.718 Personal history of other venous thrombosis and embolism; Z90.49 Acquired absence of other specified parts of digestive tract; Z98.51 Tubal ligation status; Z98.890 Other specified postprocedural states; Z79.899 Other long term (current) drug therapy; Z88.0 Allergy status to penicillin

== ENCOUNTER 2018-12-15 20:06 | Inpatient (IN) | payer OTHER ==
[~2018-12-15] VITALS: Ht 167.6 cm; Wt 160.9 kg
[~2018-12-15 20:06] MED LIST changes: +CEPHALEXIN500 M1 PO; +SEPTDS PO
[2018-12-15 20:08] VITALS: BP 151/94
[2018-12-15 21:21] LABS: ALBUMIN 3.2 gm/dl (3.1-4.5); ALKALINE PHOSPHATASE 75 U/L (45-117); BUN 12 mg/dl (7-24); CHLORIDE 104 mmol/L (98-107); CREATININE 1.06 mg/dL (0.55-1.02); POTASSIUM 3.5 mmol/L (3.5-5.1); SGOT/AST 14 IU/L (3-35); SGPT/ALT 33 U/L (12-78); SODIUM 137 mmol/L (136-145); TOTAL PROTEIN 6.9 gm/dL (6.4-8.2)
[2018-12-15 21:30] VITALS: BP 117/58
[2018-12-15 22:08] LABS: BASO % 0.2 % (0.0-1.0); EOS % 0.3 % (1.0-4.0); HEMATOCRIT 35.9 % (37.0-47.0); HEMOGLOBIN 11.5 g/dl (12.0-16.0); LYMPH # 2.7 10*3/uL (1.3-4.4); LYMPH % 26.4 % (27.0-41.0); MEAN CELL VOLUME 89.8 fl (81.0-99.0); MEAN CORPUSCULAR HGB 28.8 pg (27.0-31.0); MEAN PLATELET VOLUME 10.6 fl (9.6-12.3); MONO % 9.5 % (3.0-9.0); NEUT # 6.4 10*3/uL (2.3-7.9); NEUT % 63.3 % (47.0-73.0); PLATELET COUNT AUTOMATED 205 10*3/uL (130-400); RED CELL DISTRI WIDTH 13.2 % (0-14.5); WHITE BLOOD COUNT 10.1 10*3/uL (4.8-10.8)
[2018-12-15 22:50] VITALS: BP 139/71
[2018-12-15] MEDS ORDERED: CLARITIN10 MG PO (23:23)
[2018-12-15] MEDS ORDERED: PRILOSEC20 M1 PO (23:24)
[2018-12-16] VITALS: BP 139/71
[2018-12-16 07:22] LABS: BASO % 0.1 % (0.0-1.0); EOS % 0.6 % (1.0-4.0); HEMATOCRIT 33.6 % (37.0-47.0); HEMOGLOBIN 10.6 g/dl (12.0-16.0); LYMPH # 2.2 10*3/uL (1.3-4.4); MEAN CELL VOLUME 92.1 fl (81.0-99.0); MEAN CORPUSCULAR HGB CONC 31.5 g/dl (33.0-37.0); MEAN PLATELET VOLUME 10.7 fl (9.6-12.3); MONO # 0.8 10*3/uL (0.1-1.0); PLATELET COUNT AUTOMATED 179 10*3/uL (130-400); RED BLOOD COUNT 3.65 10*6/uL (4.10-5.10); RED CELL DISTRI WIDTH 13.2 % (0-14.5)
[2018-12-16 07:38] LABS: BUN 11 mg/dl (7-24); CHLORIDE 106 mmol/L (98-107); CHOLESTEROL 138 mg/dL (<200); CREATININE 0.93 mg/dL (0.55-1.02); HDL CHOLESTEROL 41 mg/dl (40-60); POTASSIUM 3.3 mmol/L (3.5-5.1); SODIUM 139 mmol/L (136-145)
[2018-12-16 07:49] LABS: LDL CHOLESTEROL 82 mg/dL (9-159); PHOSPHOROUS 3.2 mg/dL (2.5-4.9); TRIGLYCERIDES 75 mg/dl (<150); VLDL CHOLESTEROL 15 mg/dL (6-40)
[2018-12-16 12:00] VITALS: BP 139/76
[2018-12-16 16:00] VITALS: BP 109/68
[2018-12-16 20:00] VITALS: BP 134/59
[2018-12-17] VITALS (9 sets, daily range): BP systolic 104–157; BP diastolic 45–73
[2018-12-17 07:51] LABS: BUN 17 mg/dl (7-24); CHLORIDE 113 mmol/L (98-107); CREATININE 0.78 mg/dL (0.55-1.02); POTASSIUM 4.2 mmol/L (3.5-5.1); SODIUM 139 mmol/L (136-145)
[2018-12-17 08:01] LABS: BASO % 0.3 % (0.0-1.0); EOS # 0.1 10*3/uL (0.0-0.4); EOS % 1.5 % (1.0-4.0); HEMATOCRIT 31.7 % (37.0-47.0); HEMOGLOBIN 9.8 g/dl (12.0-16.0); LYMPH # 1.5 10*3/uL (1.3-4.4); LYMPH % 25.4 % (27.0-41.0); MEAN CELL VOLUME 94.3 fl (81.0-99.0); MEAN CORPUSCULAR HGB 29.2 pg (27.0-31.0); MEAN CORPUSCULAR HGB CONC 30.9 g/dl (33.0-37.0); MEAN PLATELET VOLUME 11.1 fl (9.6-12.3); MONO # 0.5 10*3/uL (0.1-1.0); MONO % 8.7 % (3.0-9.0); NEUT # 3.9 10*3/uL (2.3-7.9); NEUT % 63.8 % (47.0-73.0); PLATELET COUNT AUTOMATED 171 10*3/uL (130-400); RED BLOOD COUNT 3.36 10*6/uL (4.10-5.10); RED CELL DISTRI WIDTH 13.2 % (0-14.5); WHITE BLOOD COUNT 6.1 10*3/uL (4.8-10.8)
[2018-12-18] VITALS: BP 128/68
[2018-12-18 07:08] LABS: BUN 8 mg/dl (7-24); CHLORIDE 111 mmol/L (98-107); POTASSIUM 4.2 mmol/L (3.5-5.1); SODIUM 142 mmol/L (136-145)
[2018-12-18 08:00] VITALS: BP 130/68
[2018-12-18 08:04] LABS: BASO % 0.1 % (0.0-1.0); EOS % 0.4 % (1.0-4.0); HEMATOCRIT 32.2 % (37.0-47.0); HEMOGLOBIN 10.2 g/dl (12.0-16.0); LYMPH # 0.9 10*3/uL (1.3-4.4); LYMPH % 11.5 % (27.0-41.0); MEAN CORPUSCULAR HGB 28.5 pg (27.0-31.0); MEAN CORPUSCULAR HGB CONC 31.7 g/dl (33.0-37.0); MEAN PLATELET VOLUME 11.7 fl (9.6-12.3); MONO # 0.6 10*3/uL (0.1-1.0); MONO % 8.2 % (3.0-9.0); NEUT # 6.2 10*3/uL (2.3-7.9); PLATELET COUNT AUTOMATED 195 10*3/uL (130-400); RED BLOOD COUNT 3.58 10*6/uL (4.10-5.10); RED CELL DISTRI WIDTH 12.8 % (0-14.5); WHITE BLOOD COUNT 7.8 10*3/uL (4.8-10.8)
[2018-12-18 08:17] LABS: MEAN CELL VOLUME 89.9 fl (81.0-99.0)
[2018-12-18 12:00] VITALS: BP 120/54
[2018-12-18 16:00] VITALS: BP 128/60
[2018-12-18 20:00] VITALS: BP 141/78
[2018-12-19] VITALS: BP 117/78
[2018-12-19 07:22] LABS: BASO % 0.6 % (0.0-1.0); EOS # 0.1 10*3/uL (0.0-0.4); EOS % 0.9 % (1.0-4.0); HEMATOCRIT 29.9 % (37.0-47.0); HEMOGLOBIN 9.5 g/dl (12.0-16.0); LYMPH # 2.5 10*3/uL (1.3-4.4); LYMPH % 36.2 % (27.0-41.0); MEAN CORPUSCULAR HGB 29.8 pg (27.0-31.0); MEAN CORPUSCULAR HGB CONC 31.8 g/dl (33.0-37.0); MEAN PLATELET VOLUME 10.4 fl (9.6-12.3); MONO # 0.6 10*3/uL (0.1-1.0); MONO % 8.1 % (3.0-9.0); NEUT # 3.7 10*3/uL (2.3-7.9); NEUT % 53.6 % (47.0-73.0); PLATELET COUNT AUTOMATED 189 10*3/uL (130-400); RED BLOOD COUNT 3.19 10*6/uL (4.10-5.10); RED CELL DISTRI WIDTH 13.2 % (0-14.5); WHITE BLOOD COUNT 6.8 10*3/uL (4.8-10.8)
[2018-12-19 07:43] LABS: BUN 17 mg/dl (7-24); CHLORIDE 110 mmol/L (98-107); CREATININE 0.85 mg/dL (0.55-1.02); POTASSIUM 3.6 mmol/L (3.5-5.1); SODIUM 142 mmol/L (136-145)
[2018-12-19 08:00] VITALS: BP 128/79
[2018-12-19 08:03] LABS: MEAN CELL VOLUME 93.7 fl (81.0-99.0)
[2018-12-19 12:00] VITALS: BP 124/62
[2018-12-19 16:00] VITALS: BP 119/56
[2018-12-19 20:00] VITALS: BP 127/65
[2018-12-20] VITALS (7 sets, daily range): BP systolic 101–154; BP diastolic 58–87
[2018-12-20 06:49] LABS: BASO % 0.3 % (0.0-1.0); EOS # 0.2 10*3/uL (0.0-0.4); EOS % 2.4 % (1.0-4.0); HEMATOCRIT 30.9 % (37.0-47.0); HEMOGLOBIN 9.7 g/dl (12.0-16.0); LYMPH # 2.5 10*3/uL (1.3-4.4); LYMPH % 39.7 % (27.0-41.0); MEAN CELL VOLUME 92.5 fl (81.0-99.0); MEAN CORPUSCULAR HGB CONC 31.4 g/dl (33.0-37.0); MEAN PLATELET VOLUME 10.4 fl (9.6-12.3); MONO # 0.5 10*3/uL (0.1-1.0); MONO % 8.5 % (3.0-9.0); NEUT # 3.1 10*3/uL (2.3-7.9); NEUT % 48.3 % (47.0-73.0); PLATELET COUNT AUTOMATED 192 10*3/uL (130-400); RED BLOOD COUNT 3.34 10*6/uL (4.10-5.10); RED CELL DISTRI WIDTH 13.3 % (0-14.5); WHITE BLOOD COUNT 6.3 10*3/uL (4.8-10.8)
[2018-12-20 07:06] LABS: BUN 13 mg/dl (7-24); CHLORIDE 105 mmol/L (98-107); CREATININE 0.77 mg/dL (0.55-1.02); POTASSIUM 3.9 mmol/L (3.5-5.1); SODIUM 139 mmol/L (136-145)
[2018-12-21] VITALS: BP 127/77
[2018-12-21 08:00] VITALS: BP 145/87
[2018-12-21] MEDS ORDERED: HYDROCODONE-AC1 EAC1 PO (11:03)
[2018-12-21 12:00] VITALS: BP 124/73
[2018-12-21 16:00] VITALS: BP 132/74
[2018-12-21 20:00] VITALS: BP 129/71
[2018-12-22] VITALS: BP 129/79
[2018-12-22 06:51] LABS: BASO % 0.5 % (0.0-1.0); EOS # 0.2 10*3/uL (0.0-0.4); HEMATOCRIT 32.3 % (37.0-47.0); HEMOGLOBIN 10.3 g/dl (12.0-16.0); LYMPH # 1.8 10*3/uL (1.3-4.4); LYMPH % 32.3 % (27.0-41.0); MEAN CELL VOLUME 90.5 fl (81.0-99.0); MEAN CORPUSCULAR HGB 28.9 pg (27.0-31.0); MEAN CORPUSCULAR HGB CONC 31.9 g/dl (33.0-37.0); MONO # 0.5 10*3/uL (0.1-1.0); MONO % 8.1 % (3.0-9.0); NEUT # 3.1 10*3/uL (2.3-7.9); NEUT % 55.2 % (47.0-73.0); PLATELET COUNT AUTOMATED 195 10*3/uL (130-400); RED BLOOD COUNT 3.57 10*6/uL (4.10-5.10); WHITE BLOOD COUNT 5.7 10*3/uL (4.8-10.8)
[2018-12-22 07:15] LABS: BUN 10 mg/dl (7-24); CHLORIDE 104 mmol/L (98-107); CREATININE 0.92 mg/dL (0.55-1.02); POTASSIUM 3.8 mmol/L (3.5-5.1); SODIUM 137 mmol/L (136-145)
[2018-12-22 12:00] VITALS: BP 138/88
[2018-12-22 16:00] VITALS: BP 139/74
[2018-12-22 20:00] VITALS: BP 127/71
[2018-12-23] VITALS: BP 120/69
[2018-12-23 08:00] VITALS: BP 106/52
[2018-12-23 12:00] VITALS: BP 118/79
[2018-12-23 16:00] VITALS: BP 125/85
[2018-12-23 20:00] VITALS: BP 150/83
[2018-12-24] VITALS: BP 119/79
[2018-12-24 08:00] VITALS: BP 120/82
[2018-12-24 12:00] VITALS: BP 128/66
[2018-12-24 16:00] VITALS: BP 138/85
[2018-12-24 20:00] VITALS: BP 140/90
[2018-12-25] VITALS: BP 118/68
[2018-12-25 06:59] LABS: BUN 12 mg/dl (7-24)
[2018-12-25 08:00] VITALS: BP 130/76
[2018-12-25 12:00] VITALS: BP 120/56
[2018-12-25 16:00] VITALS: BP 107/62
[2018-12-25 20:00] VITALS: BP 129/74
[2018-12-26] VITALS: BP 121/69
[2018-12-26 08:00] VITALS: BP 127/69
== END 2018-12-26 14:41 | disposition home or self-care (01) | DRG 854 ==
LOC: ED 20:06 → EDHOLD 21:29 → 4E 21:29 → 5E 22:02 → 4E 22:39
PROVIDERS: Emergency Medicine Emergency Medical Services; Family Medicine; Internal Medicine; Student in an Organized Health Care Education/Training Program; ADMIT Emergency Medicine
PROC: 0JB90ZZ Excision of Buttock Subcutaneous Tissue and Fascia, Open Approach (ICD-10-PCS; principal; 2018-12-17)
PROC: 05HY33Z Insertion of Infusion Device into Upper Vein, Percutaneous Approach (ICD-10-PCS; 2018-12-18)
PROC: 2W0PX6Z Change Pressure Dressing on Left Upper Leg (ICD-10-PCS; 2018-12-20)
DX: A41.9 Sepsis, unspecified organism (principal); L02.31 Cutaneous abscess of buttock; L03.317 Cellulitis of buttock; E44.0 Moderate protein-calorie malnutrition; Z68.43 Body mass index [BMI] 50.0-59.9, adult; R65.20 Severe sepsis without septic shock; E66.01 Morbid (severe) obesity due to excess calories; E55.9 Vitamin D deficiency, unspecified; F41.9 Anxiety disorder, unspecified; B95.62 Methicillin resistant Staphylococcus aureus infection as the cause of diseases classified elsewhere; G47.33 Obstructive sleep apnea (adult) (pediatric); D64.9 Anemia, unspecified; E87.6 Hypokalemia; J45.909 Unspecified asthma, uncomplicated; Z88.0 Allergy status to penicillin; Z86.718 Personal history of other venous thrombosis and embolism; Z87.01 Personal history of pneumonia (recurrent); Z86.711 Personal history of pulmonary embolism; Z90.49 Acquired absence of other specified parts of digestive tract; Z98.51 Tubal ligation status; Z83.3 Family history of diabetes mellitus; Z83.79 Family history of other diseases of the digestive system; Z82.3 Family history of stroke; Z82.49 Family history of ischemic heart disease and other diseases of the circulatory system; Z79.899 Other long term (current) drug therapy

== ENCOUNTER 2019-06-25 07:27 | Emergency (ER) | payer OTHER ==
[~2019-06-25] VITALS: Ht 167.6 cm; Wt 162.8 kg
[~2019-06-25 07:27] MED LIST changes: +CLARITIN10 MG PO; +HYDROCODONE-AC1 EAC1 PO
[2019-06-25 07:28] VITALS: BP 153/95
[2019-06-25] MEDS ORDERED: PEPCID20 MG PO (08:26)
[2019-06-25] MEDS ORDERED: PREDNISONE10 MG PO (08:26)
[2019-06-25] MEDS ORDERED: BENADRYL25 M2 PO (08:26)
[2019-06-25] MEDS ORDERED: AVPAK AZITHROM250 MG PO (09:50)
== END 2019-06-25 10:02 | disposition home or self-care (01) ==
LOC: ED 07:27
DX: J02.9 Acute pharyngitis, unspecified (principal); J45.909 Unspecified asthma, uncomplicated; G47.33 Obstructive sleep apnea (adult) (pediatric); F41.9 Anxiety disorder, unspecified; G43.909 Migraine, unspecified, not intractable, without status migrainosus; Z88.0 Allergy status to penicillin; Z79.899 Other long term (current) drug therapy; Z79.2 Long term (current) use of antibiotics; Z87.891 Personal history of nicotine dependence

== ENCOUNTER 2020-01-27 14:22 | Emergency (ER) | payer OTHER ==
[~2020-01-27] VITALS: Ht 167.6 cm; Wt 158.8 kg
[~2020-01-27 14:22] MED LIST changes: +AVPAK AZITHROM250 MG PO; +BENADRYL25 M2 PO; +PEPCID20 MG PO
[2020-01-27 14:45] VITALS: BP 135/86
[2020-01-27] MEDS ORDERED: VIBRAMYCIN100 MG PO (16:38)
[2020-01-27] MEDS ORDERED: PREDNISONE50 MG PO (16:38)
[2020-01-27] MEDS ORDERED: GUAIFEN-CODEINE5 ML PO (16:41)
[2020-01-27] MEDS ORDERED: ALBUTEROL2.5 MG/0.5 INH (16:41)
== END 2020-01-27 17:03 | disposition home or self-care (01) ==
LOC: ED 14:22
DX: J18.9 Pneumonia, unspecified organism (principal); J45.909 Unspecified asthma, uncomplicated; G43.909 Migraine, unspecified, not intractable, without status migrainosus; Z88.0 Allergy status to penicillin; Z79.899 Other long term (current) drug therapy; Z20.828 Contact with and (suspected) exposure to other viral communicable diseases

== ENCOUNTER → 2020-02-20 | Outpatient (CLI) | payer OTHER ==
[~2020-02-20] MED LIST changes: +ALBUTEROL2.5 MG/0.5 INH; +GUAIFEN-CODEINE5 ML PO; +PREDNISONE50 MG PO
== END | disposition home or self-care (01) ==
LOC: RAD 18:12
PROVIDERS: ATTEND Family Medicine
DX: J98.4 Other disorders of lung (principal); J18.9 Pneumonia, unspecified organism

== ENCOUNTER → 2020-03-23 | Outpatient (CLI) | payer OTHER | END | disposition home or self-care (01) | LOC: COVID19 11:45 | PROVIDERS: ATTEND Family Medicine | DX: Z20.828 Contact with and (suspected) exposure to other viral communicable diseases (principal) ==

== ENCOUNTER → 2020-10-20 | Outpatient (CLI) | payer OTHER | END | disposition home or self-care (01) | LOC: RAD 09:43 | PROVIDERS: ATTEND Family Medicine | DX: J40 Bronchitis, not specified as acute or chronic (principal) ==

== ENCOUNTER 2020-10-24 18:05 | Emergency (ER) | payer OTHER ==
[~2020-10-24] VITALS: Ht 167.6 cm; Wt 155.6 kg
[2020-10-24 18:10] VITALS: BP 141/77
[2020-10-24 18:53] LABS: BASO % 0.5 % (0.0-1.0); EOS # 0.1 10*3/uL (0.0-0.4); EOS % 1.8 % (1.0-4.0); HEMATOCRIT 38.3 % (37.0-47.0); LYMPH # 2.3 10*3/uL (1.3-4.4); LYMPH % 36.7 % (27.0-41.0); MEAN CELL VOLUME 89.7 fl (81.0-99.0); MEAN CORPUSCULAR HGB 29.5 pg (27.0-31.0); MEAN CORPUSCULAR HGB CONC 32.9 g/dl (33.0-37.0); MEAN PLATELET VOLUME 10.5 fl (9.6-12.3); MONO # 0.5 10*3/uL (0.1-1.0); MONO % 8.6 % (3.0-9.0); NEUT # 3.3 10*3/uL (2.3-7.9); NEUT % 52.2 % (47.0-73.0); PLATELET COUNT AUTOMATED 179 10*3/uL (130-400); RED BLOOD COUNT 4.27 10*6/uL (4.10-5.10); RED CELL DISTRI WIDTH 14.5 % (0-14.5); WHITE BLOOD COUNT 6.3 10*3/uL (4.8-10.8)
[2020-10-24 19:10] LABS: ALBUMIN 2.9 gm/dl (3.1-4.5); ALKALINE PHOSPHATASE 71 U/L (45-117); BUN 11 mg/dl (7-24); CHLORIDE 108 mmol/L (98-107); CPK 80 U/L (26-192); CREATININE 0.89 mg/dL (0.55-1.02); POTASSIUM 3.2 mmol/L (3.5-5.1); SGOT/AST 49 IU/L (3-35); SGPT/ALT 78 U/L (12-78); SODIUM 140 mmol/L (136-145); TOTAL PROTEIN 6.5 gm/dL (6.4-8.2); TROPONIN I < 0.015 ng/ml (<0.045)
[2020-10-24 21:33] LABS: BILIRUBIN 2+ (Negative); BLOOD 3+ (Negative); CLARITY Cloudy (Clear); COLOR Red (Yellow); GLUCOSE Negative (Negative); KETONE Trace (Negative); NITRITE Negative (Negative); PH 5.5 (4.5-8.0); SPECIFIC GRAVITY >= 1.030 (1.001-1.030)
[2020-10-24 21:44] LABS: LEUKO ESTERASE 1+ (Negative); RBC TNTC rbc/hpf (0-2)
== END 2020-10-25 03:27 | disposition home or self-care (01) ==
LOC: ED 18:05
PROVIDERS: Emergency Medicine
DX: E86.0 Dehydration (principal); F41.9 Anxiety disorder, unspecified; J45.909 Unspecified asthma, uncomplicated; G47.33 Obstructive sleep apnea (adult) (pediatric); Z88.0 Allergy status to penicillin; Z79.899 Other long term (current) drug therapy

== ENCOUNTER → 2021-02-13 | Outpatient (CLI) | payer OTHER ==
[2021-02-13 10:17] LABS: BASO % 0.6 % (0.0-1.0); EOS # 0.1 10*3/uL (0.0-0.4); EOS % 1.5 % (1.0-4.0); HEMATOCRIT 38.9 % (37.0-47.0); LYMPH # 1.6 10*3/uL (1.3-4.4); LYMPH % 33.5 % (27.0-41.0); MEAN CELL VOLUME 92.4 fl (81.0-99.0); MEAN CORPUSCULAR HGB 29.7 pg (27.0-31.0); MEAN CORPUSCULAR HGB CONC 32.1 g/dl (33.0-37.0); MEAN PLATELET VOLUME 11.7 fl (9.6-12.3); MONO # 0.5 10*3/uL (0.1-1.0); NEUT # 2.5 10*3/uL (2.3-7.9); NEUT % 54.2 % (47.0-73.0); PLATELET COUNT AUTOMATED 176 10*3/uL (130-400); RED BLOOD COUNT 4.21 10*6/uL (4.10-5.10); RED CELL DISTRI WIDTH 13.4 % (0-14.5); WHITE BLOOD COUNT 4.7 10*3/uL (4.8-10.8)
[2021-02-13 11:20] LABS: VITAMIN D, 25-HYDROXY 63.5 ng/mL (30-100)
[2021-02-13 12:10] LABS: ALBUMIN 3.3 gm/dl (3.1-4.5); ALKALINE PHOSPHATASE 72 U/L (45-117); BUN 8 mg/dl (7-24); CREATININE 0.67 mg/dL (0.55-1.02); SGOT/AST 31 IU/L (3-35); SGPT/ALT 38 U/L (12-78); TOTAL PROTEIN 6.7 gm/dL (6.4-8.2)
[2021-02-13 12:11] LABS: CHLORIDE 107 mmol/L (98-107); POTASSIUM 3.1 mmol/L (3.5-5.1); SODIUM 141 mmol/L (136-145)
[2021-02-15 15:13] LABS: FERRITIN 37.2 ng/mL (10.0-291.0)
== END | disposition home or self-care (01) ==
LOC: LAB 09:24
PROVIDERS: ATTEND Surgery
DX: K90.89 Other intestinal malabsorption (principal); E55.9 Vitamin D deficiency, unspecified; Z98.84 Bariatric surgery status

== ENCOUNTER 2021-04-04 09:22 | Emergency (ER) | payer OTHER ==
[~2021-04-04] VITALS: Ht 167.6 cm; Wt 119.3 kg
[2021-04-04 12:21] VITALS: BP 134/70
== END 2021-04-04 13:00 | disposition home or self-care (01) ==
LOC: ED 09:22
DX: U07.1 COVID-19 (principal); Z88.0 Allergy status to penicillin; Z79.899 Other long term (current) drug therapy

== ENCOUNTER → 2021-06-30 | Outpatient (CLI) | payer OTHER | END | disposition home or self-care (01) | LOC: MAMMO 08:30 | PROVIDERS: ATTEND Nurse Practitioner Women's Health | DX: Z12.31 Encounter for screening mammogram for malignant neoplasm of breast (principal); N63.20 Unspecified lump in the left breast, unspecified quadrant ==

== ENCOUNTER → 2021-12-02 | Outpatient (CLI) | payer OTHER ==
[2021-12-02 10:27] LABS: BASO % 0.4 % (0.0-1.0); EOS # 0.1 10*3/uL (0.0-0.4); EOS % 2.6 % (1.0-4.0); HEMATOCRIT 38.7 % (37.0-47.0); LYMPH # 1.9 10*3/uL (1.3-4.4); LYMPH % 37.7 % (27.0-41.0); MEAN CELL VOLUME 94.2 fl (81.0-99.0); MEAN CORPUSCULAR HGB 29.7 pg (27.0-31.0); MEAN CORPUSCULAR HGB CONC 31.5 g/dl (33.0-37.0); MEAN PLATELET VOLUME 10.8 fl (9.6-12.3); MONO # 0.4 10*3/uL (0.1-1.0); NEUT # 2.5 10*3/uL (2.3-7.9); NEUT % 49.9 % (47.0-73.0); PLATELET COUNT AUTOMATED 185 10*3/uL (130-400); RED BLOOD COUNT 4.11 10*6/uL (4.10-5.10); RED CELL DISTRI WIDTH 13.2 % (0-14.5); WHITE BLOOD COUNT 4.9 10*3/uL (4.8-10.8)
[2021-12-02 10:48] LABS: ALKALINE PHOSPHATASE 87 U/L (45-117); BUN 14 mg/dl (7-24); CHLORIDE 111 mmol/L (98-107); POTASSIUM 3.8 mmol/L (3.5-5.1); SGOT/AST 14 IU/L (3-35); SGPT/ALT 18 U/L (12-78); SODIUM 144 mmol/L (136-145); TOTAL PROTEIN 6.5 gm/dL (6.4-8.2)
[2021-12-02 10:59] LABS: FERRITIN 16.3 ng/mL (10.0-291.0); VITAMIN D, 25-HYDROXY 58.1 ng/mL (30-100)
== END ==
LOC: LAB 09:48
PROVIDERS: ATTEND Surgery
DX: K90.9 Intestinal malabsorption, unspecified (principal); E55.9 Vitamin D deficiency, unspecified; Z98.84 Bariatric surgery status

== ENCOUNTER 2022-01-31 06:46 | Emergency (ER) | payer OTHER ==
[2022-01-31 07:12] VITALS: BP 127/74
[2022-01-31] MEDS ORDERED: MECLIZINE HCL25 M2 PO (13:47)
[2022-01-31] MEDS ORDERED: ONDANSETRON4 MG SL (13:47)
== END 2022-01-31 14:01 | disposition home or self-care (01) ==
LOC: ED 06:46
DX: B34.9 Viral infection, unspecified (principal); Z20.822 Contact with and (suspected) exposure to COVID-19; Z88.0 Allergy status to penicillin; Z79.899 Other long term (current) drug therapy; Z90.49 Acquired absence of other specified parts of digestive tract; Z98.51 Tubal ligation status; Z90.89 Acquired absence of other organs

== ENCOUNTER 2022-04-10 20:48 | Inpatient (IN) | payer OTHER ==
[~2022-04-10] VITALS: Ht 167.6 cm; Wt 104.3 kg
[~2022-04-10 20:48] MED LIST changes: +ONDANSETRON4 MG SL
[2022-04-10 20:56] VITALS: BP 120/97
[2022-04-10 21:42] LABS: BASO % 0.4 % (0.0-1.0); EOS # 0.1 10*3/uL (0.0-0.4); HEMATOCRIT 39.9 % (37.0-47.0); LYMPH # 2.1 10*3/uL (1.3-4.4); LYMPH % 30.1 % (27.0-41.0); MEAN CELL VOLUME 89.5 fl (81.0-99.0); MEAN CORPUSCULAR HGB 29.6 pg (27.0-31.0); MEAN CORPUSCULAR HGB CONC 33.1 g/dl (33.0-37.0); MONO # 0.5 10*3/uL (0.1-1.0); MONO % 7.5 % (3.0-9.0); NEUT # 4.2 10*3/uL (2.3-7.9); NEUT % 60.9 % (47.0-73.0); PLATELET COUNT AUTOMATED 217 10*3/uL (130-400); RED BLOOD COUNT 4.46 10*6/uL (4.10-5.10); RED CELL DISTRI WIDTH 13.1 % (0-14.5); WHITE BLOOD COUNT 6.9 10*3/uL (4.8-10.8)
[2022-04-10 22:01] LABS: ALKALINE PHOSPHATASE 85 U/L (46-116); BUN 11 mg/dl (9-23); CHLORIDE 106 mmol/L (98-107); CREATININE 0.73 mg/dL (0.55-1.02); LIPASE 33 U/L (12-53); POTASSIUM 3.7 mmol/L (3.4-5.1); SGPT/ALT 16 U/L (10-49); SODIUM 139 mmol/L (136-145); TOTAL PROTEIN 6.7 gm/dL (6.0-8.0)
[2022-04-11 07:34] LABS: BASO % 0.6 % (0.0-1.0); EOS # 0.1 10*3/uL (0.0-0.4); EOS % 1.5 % (1.0-4.0); LYMPH % 36.7 % (27.0-41.0); MEAN CORPUSCULAR HGB 30.2 pg (27.0-31.0); MEAN CORPUSCULAR HGB CONC 32.2 g/dl (33.0-37.0); MEAN PLATELET VOLUME 10.8 fl (9.6-12.3); MONO # 0.6 10*3/uL (0.1-1.0); MONO % 10.4 % (3.0-9.0); NEUT # 2.7 10*3/uL (2.3-7.9); NEUT % 50.6 % (47.0-73.0); PLATELET COUNT AUTOMATED 183 10*3/uL (130-400); RED BLOOD COUNT 3.94 10*6/uL (4.10-5.10); RED CELL DISTRI WIDTH 13.2 % (0-14.5); WHITE BLOOD COUNT 5.4 10*3/uL (4.8-10.8)
[2022-04-11 07:37] LABS: MEAN CELL VOLUME 93.9 fl (81.0-99.0)
[2022-04-11 08:23] VITALS: BP 98/48
[2022-04-11 14:56] VITALS: BP 100/56
[2022-04-11 18:49] VITALS: BP 113/53
[2022-04-11 20:17] VITALS: BP 95/46
[2022-04-12 01:16] VITALS: BP 107/63
[2022-04-12 06:36] VITALS: BP 98/56
[2022-04-12] MEDS ORDERED: Carafate1 GM/10 ML PO (07:52)
[2022-04-12] MEDS ORDERED: PRILOSEC20 M1 PO (07:52)
== END 2022-04-12 08:22 | disposition home or self-care (01) | DRG 389 ==
LOC: ED 20:48 → EDHOLD 04-11 01:38 → 4E 04-11 22:07 → EDHOLD 04-11 23:27
PROVIDERS: Physician Assistant; ADMIT Internal Medicine; ATTEND Internal Medicine
PROC: 0D9670Z Drainage of Stomach with Drainage Device, Via Natural or Artificial Opening (ICD-10-PCS; principal; 2022-04-11)
DX: K56.609 Unspecified intestinal obstruction, unspecified as to partial versus complete obstruction (principal); G47.33 Obstructive sleep apnea (adult) (pediatric); K28.9 Gastrojejunal ulcer, unspecified as acute or chronic, without hemorrhage or perforation; F33.9 Major depressive disorder, recurrent, unspecified; Z88.0 Allergy status to penicillin; Z90.49 Acquired absence of other specified parts of digestive tract; Z98.51 Tubal ligation status; Z82.49 Family history of ischemic heart disease and other diseases of the circulatory system; Z83.3 Family history of diabetes mellitus; Z98.84 Bariatric surgery status; Z86.718 Personal history of other venous thrombosis and embolism; Z86.711 Personal history of pulmonary embolism; Z79.01 Long term (current) use of anticoagulants

== ENCOUNTER → 2022-04-21 | Day surgery (SDC) | payer OTHER ==
[~2022-04-21] VITALS: Ht 167.6 cm; Wt 104.3 kg
[~2022-04-21] MED LIST changes: +Carafate1 GM/10 ML PO
[2022-04-21 10:00] VITALS: BP 114/70
[2022-04-21 10:34] VITALS: BP 125/74
[2022-04-21 10:49] VITALS: BP 118/65
[2022-04-21 11:04] VITALS: BP 114/60
== END | disposition home or self-care (01) ==
LOC: SDC 04-19 09:30
PROVIDERS: ATTEND Surgery
DX: R10.13 Epigastric pain (principal); K25.9 Gastric ulcer, unspecified as acute or chronic, without hemorrhage or perforation; K56.609 Unspecified intestinal obstruction, unspecified as to partial versus complete obstruction; G43.909 Migraine, unspecified, not intractable, without status migrainosus; J45.909 Unspecified asthma, uncomplicated; Z88.0 Allergy status to penicillin; Z98.84 Bariatric surgery status

== ENCOUNTER 2022-05-09 20:43 | Emergency (ER) | payer OTHER ==
[~2022-05-09] VITALS: Ht 167.6 cm; Wt 104.3 kg
[2022-05-09 21:10] VITALS: BP 138/57
[2022-05-09 21:54] LABS: BILIRUBIN Negative (Negative); BLOOD Negative (Negative); CLARITY Clear (Clear); COLOR Yellow (Yellow); GLUCOSE Negative (Negative); KETONE Negative (Negative); LEUKO ESTERASE Trace (Negative); NITRITE Negative (Negative); PH 5.5 (4.5-8.0); UROBILINOGEN 0.2 E.U./dl (0.0-1.0)
[2022-05-09 22:01] LABS: BACTERIA TRACE
[2022-05-09 22:23] LABS: BASO % 0.5 % (0.0-1.0); EOS # 0.1 10*3/uL (0.0-0.4); EOS % 1.4 % (1.0-4.0); HEMATOCRIT 38.9 % (37.0-47.0); LYMPH # 2.5 10*3/uL (1.3-4.4); LYMPH % 32.1 % (27.0-41.0); MEAN CELL VOLUME 91.5 fl (81.0-99.0); MEAN CORPUSCULAR HGB 29.6 pg (27.0-31.0); MEAN CORPUSCULAR HGB CONC 32.4 g/dl (33.0-37.0); MEAN PLATELET VOLUME 10.5 fl (9.6-12.3); MONO # 0.6 10*3/uL (0.1-1.0); NEUT # 4.5 10*3/uL (2.3-7.9); NEUT % 57.7 % (47.0-73.0); PLATELET COUNT AUTOMATED 207 10*3/uL (130-400); RED BLOOD COUNT 4.25 10*6/uL (4.10-5.10); RED CELL DISTRI WIDTH 12.6 % (0-14.5); WHITE BLOOD COUNT 7.7 10*3/uL (4.8-10.8)
[2022-05-09 22:56] LABS: ALKALINE PHOSPHATASE 76 U/L (46-116); BUN 14 mg/dl (9-23); CHLORIDE 108 mmol/L (98-107); LIPASE 35 U/L (12-53); POTASSIUM 3.8 mmol/L (3.4-5.1); SGPT/ALT 14 U/L (10-49); TOTAL PROTEIN 6.7 gm/dL (6.0-8.0)
== END 2022-05-10 01:49 | disposition home or self-care (01) ==
LOC: ED 20:43
PROVIDERS: Physician Assistant
DX: R10.13 Epigastric pain (principal); Z88.0 Allergy status to penicillin; Z90.49 Acquired absence of other specified parts of digestive tract

== ENCOUNTER → 2022-08-29 | Outpatient (CLI) | payer OTHER ==
[2022-08-29 09:29] LABS: HEMATOCRIT 40.8 % (37.0-47.0); MEAN CELL VOLUME 91.9 fl (81.0-99.0); MEAN CORPUSCULAR HGB 29.7 pg (27.0-31.0); MEAN CORPUSCULAR HGB CONC 32.4 g/dl (33.0-37.0); RED BLOOD COUNT 4.44 10*6/uL (4.10-5.10); RED CELL DISTRI WIDTH 12.6 % (0-14.5); WHITE BLOOD COUNT 4.5 10*3/uL (4.8-10.8)
[2022-08-29 10:01] LABS: ALKALINE PHOSPHATASE 90 U/L (46-116); BUN 17 mg/dl (9-23); CHLORIDE 107 mmol/L (98-107); CHOLESTEROL 183 mg/dL (<200); LDL CHOLESTEROL 104 mg/dL (9-159); POTASSIUM 4.2 mmol/L (3.4-5.1); SGPT/ALT 21 U/L (10-49); TRIGLYCERIDES 46 mg/dl (<150)
[2022-08-29 10:33] LABS: VITAMIN D, 25-HYDROXY 40.9 ng/mL (30-100)
== END | disposition home or self-care (01) ==
LOC: LAB 09:09
PROVIDERS: ATTEND Family Medicine
DX: E74.00 Glycogen storage disease, unspecified (principal); F41.1 Generalized anxiety disorder; E66.9 Obesity, unspecified; K25.9 Gastric ulcer, unspecified as acute or chronic, without hemorrhage or perforation; J40 Bronchitis, not specified as acute or chronic

== ENCOUNTER → 2022-09-01 | Outpatient (CLI) | payer OTHER | END | disposition home or self-care (01) | LOC: LAB 09:23 → RAD 09:23 | PROVIDERS: ATTEND Family Medicine | DX: R05.9 Cough, unspecified (principal) ==

== ENCOUNTER 2023-03-06 20:51 | Inpatient (IN) | payer OTHER ==
[~2023-03-06] VITALS: Ht 167.6 cm; Wt 111.1 kg
[2023-03-06] MEDS ORDERED: FLUVOXAMINE50 MG PO (21:10)
[2023-03-06] MEDS ORDERED: TOPAMAX25 M3 PO (21:11)
[2023-03-06] MEDS ORDERED: ADIPEX-P37.5 M2 PO (21:11)
[2023-03-06 21:18] VITALS: BP 142/80
[2023-03-06 21:25] LABS: BASO % 0.5 % (0.0-1.0); EOS # 0.1 10*3/uL (0.0-0.4); EOS % 1.6 % (1.0-4.0); HEMATOCRIT 40.5 % (37.0-47.0); LYMPH % 35.1 % (27.0-41.0); MEAN CELL VOLUME 89.4 fl (81.0-99.0); MEAN CORPUSCULAR HGB 30.5 pg (27.0-31.0); MEAN CORPUSCULAR HGB CONC 34.1 g/dl (33.0-37.0); MEAN PLATELET VOLUME 10.4 fl (9.6-12.3); MONO # 0.5 10*3/uL (0.1-1.0); MONO % 5.7 % (3.0-9.0); NEUT # 4.9 10*3/uL (2.3-7.9); NEUT % 56.9 % (47.0-73.0); PLATELET COUNT AUTOMATED 233 10*3/uL (130-400); RED BLOOD COUNT 4.53 10*6/uL (4.10-5.10); RED CELL DISTRI WIDTH 13.2 % (0-14.5); WHITE BLOOD COUNT 8.6 10*3/uL (4.8-10.8)
[2023-03-06 21:45] LABS: ALKALINE PHOSPHATASE 85 U/L (46-116); BUN 13 mg/dl (9-23); CHLORIDE 109 mmol/L (98-107); LIPASE 35 U/L (12-53); POTASSIUM 3.2 mmol/L (3.4-5.1); SGPT/ALT 20 U/L (5-49); TOTAL PROTEIN 7.5 gm/dL (6.0-8.0)
[2023-03-06 21:52] LABS: BILIRUBIN Negative (Negative); BLOOD Negative (Negative); CLARITY Clear (Clear); COLOR Yellow (Yellow); GLUCOSE Negative (Negative); KETONE Trace (Negative); LEUKO ESTERASE 1+ (Negative); NITRITE Negative (Negative); UROBILINOGEN 0.2 E.U./dl (0.0-1.0)
[2023-03-06 21:58] LABS: BACTERIA 1+; CALCIUM OXALATE CRYSTALS 1+
[2023-03-07] VITALS (7 sets, daily range): BP systolic 114–136; BP diastolic 50–81
[2023-03-07 05:51] LABS: BUN 10 mg/dl (9-23); CHLORIDE 112 mmol/L (98-107); POTASSIUM 3.9 mmol/L (3.4-5.1)
[2023-03-07 06:12] LABS: BASO % 0.5 % (0.0-1.0); EOS # 0.1 10*3/uL (0.0-0.4); EOS % 1.6 % (1.0-4.0); LYMPH # 1.9 10*3/uL (1.3-4.4); LYMPH % 34.4 % (27.0-41.0); MEAN CORPUSCULAR HGB 30.1 pg (27.0-31.0); MEAN CORPUSCULAR HGB CONC 32.8 g/dl (33.0-37.0); MEAN PLATELET VOLUME 10.7 fl (9.6-12.3); MONO # 0.4 10*3/uL (0.1-1.0); MONO % 7.2 % (3.0-9.0); NEUT # 3.1 10*3/uL (2.3-7.9); NEUT % 56.1 % (47.0-73.0); PLATELET COUNT AUTOMATED 209 10*3/uL (130-400); RED BLOOD COUNT 4.35 10*6/uL (4.10-5.10); RED CELL DISTRI WIDTH 13.3 % (0-14.5); WHITE BLOOD COUNT 5.5 10*3/uL (4.8-10.8)
[2023-03-08] VITALS: BP 106/81
[2023-03-08] MEDS ORDERED: PROTONIX40 MG PO (08:04)
[2023-03-08] MEDS ORDERED: CARAFATE1 GM PO (08:04)
== END 2023-03-08 09:45 | disposition home or self-care (01) | DRG 389 ==
LOC: ED 20:51 → EDHOLD 23:16 → 4E 03-07 13:25
PROVIDERS: Nurse Practitioner Family; ADMIT Internal Medicine; ATTEND Internal Medicine
DX: K56.7 Ileus, unspecified (principal); E87.20 Acidosis, unspecified; F32.9 Major depressive disorder, single episode, unspecified; E87.6 Hypokalemia; Z98.51 Tubal ligation status; Z90.49 Acquired absence of other specified parts of digestive tract; Z88.0 Allergy status to penicillin

== ENCOUNTER 2023-03-15 13:32 | Emergency (ER) | payer OTHER ==
[~2023-03-15] VITALS: Ht 167.6 cm; Wt 108.9 kg
[~2023-03-15 13:32] MED LIST changes: +ADIPEX-P37.5 M2 PO; +CARAFATE1 GM PO; +PROTONIX40 MG PO; +TOPAMAX25 M3 PO
[2023-03-15 13:46] VITALS: BP 136/72
[2023-03-15] MEDS ORDERED: HYDROCODONE-AC1 EAC1 PO (15:34)
== END 2023-03-15 15:40 | disposition home or self-care (01) ==
LOC: ED 13:32
DX: S80.11XA Contusion of right lower leg, initial encounter (principal); J45.909 Unspecified asthma, uncomplicated; G43.909 Migraine, unspecified, not intractable, without status migrainosus; Z88.0 Allergy status to penicillin; Z98.890 Other specified postprocedural states; Z90.49 Acquired absence of other specified parts of digestive tract; Z98.51 Tubal ligation status; Z90.89 Acquired absence of other organs; W19.XXXA Unspecified fall, initial encounter; Y93.89 Activity, other specified; Y92.89 Other specified places as the place of occurrence of the external cause; Y99.8 Other external cause status

== ENCOUNTER 2023-03-24 08:40 | Inpatient (IN) | payer OTHER ==
[~2023-03-24] VITALS: Ht 167.6 cm; Wt 114.3 kg
[2023-03-24 08:55] VITALS: BP 122/78
[2023-03-24 09:24] LABS: BASO % 0.8 % (0.0-1.0); EOS # 0.1 10*3/uL (0.0-0.4); EOS % 2.3 % (1.0-4.0); HEMATOCRIT 39.7 % (37.0-47.0); LYMPH # 1.8 10*3/uL (1.3-4.4); LYMPH % 35.3 % (27.0-41.0); MEAN CELL VOLUME 92.8 fl (81.0-99.0); MEAN CORPUSCULAR HGB 30.4 pg (27.0-31.0); MEAN CORPUSCULAR HGB CONC 32.7 g/dl (33.0-37.0); MEAN PLATELET VOLUME 10.4 fl (9.6-12.3); MONO # 0.5 10*3/uL (0.1-1.0); MONO % 9.4 % (3.0-9.0); NEUT # 2.7 10*3/uL (2.3-7.9); PLATELET COUNT AUTOMATED 204 10*3/uL (130-400); RED BLOOD COUNT 4.28 10*6/uL (4.10-5.10); RED CELL DISTRI WIDTH 13.4 % (0-14.5); WHITE BLOOD COUNT 5.2 10*3/uL (4.8-10.8)
[2023-03-24 09:37] LABS: ACT PARTIAL THROMBO TIME 26.8 SECONDS (20.0-32.1)
[2023-03-24 09:46] LABS: ALKALINE PHOSPHATASE 84 U/L (46-116); BUN 8 mg/dl (9-23); CHLORIDE 108 mmol/L (98-107); LIPASE 36 U/L (12-53); POTASSIUM 3.3 mmol/L (3.4-5.1); SGPT/ALT 21 U/L (5-49); TOTAL PROTEIN 6.9 gm/dL (6.0-8.0)
[2023-03-24 13:10] VITALS: BP 122/74
[2023-03-24 20:05] VITALS: BP 116/78
[2023-03-25] VITALS: BP 105/59
[2023-03-25 08:00] VITALS: BP 140/78
[2023-03-25 12:00] VITALS: BP 133/74
[2023-03-25 20:00] VITALS: BP 112/60
[2023-03-26] VITALS: BP 132/68
[2023-03-26 08:00] VITALS: BP 125/64
[2023-03-26 09:40] LABS: BASO % 0.7 % (0.0-1.0); EOS # 0.2 10*3/uL (0.0-0.4); EOS % 3.6 % (1.0-4.0); HEMATOCRIT 35.7 % (37.0-47.0); LYMPH # 1.7 10*3/uL (1.3-4.4); LYMPH % 38.7 % (27.0-41.0); MEAN CORPUSCULAR HGB 30.7 pg (27.0-31.0); MEAN CORPUSCULAR HGB CONC 33.3 g/dl (33.0-37.0); MEAN PLATELET VOLUME 10.1 fl (9.6-12.3); MONO # 0.4 10*3/uL (0.1-1.0); MONO % 9.7 % (3.0-9.0); NEUT # 2.1 10*3/uL (2.3-7.9); NEUT % 47.1 % (47.0-73.0); PLATELET COUNT AUTOMATED 189 10*3/uL (130-400); RED BLOOD COUNT 3.88 10*6/uL (4.10-5.10); RED CELL DISTRI WIDTH 13.2 % (0-14.5); WHITE BLOOD COUNT 4.4 10*3/uL (4.8-10.8)
[2023-03-26 12:00] VITALS: BP 120/70
[2023-03-26 16:00] VITALS: BP 122/64
[2023-03-27] VITALS: BP 113/58
[2023-03-27 07:20] LABS: BASO # 0.1 10*3/uL (0.0-0.1); BASO % 0.9 % (0.0-1.0); EOS # 0.2 10*3/uL (0.0-0.4); EOS % 3.7 % (1.0-4.0); HEMATOCRIT 37.4 % (37.0-47.0); LYMPH # 2.6 10*3/uL (1.3-4.4); LYMPH % 45.5 % (27.0-41.0); MEAN CELL VOLUME 93.3 fl (81.0-99.0); MEAN CORPUSCULAR HGB 30.2 pg (27.0-31.0); MEAN CORPUSCULAR HGB CONC 32.4 g/dl (33.0-37.0); MEAN PLATELET VOLUME 10.3 fl (9.6-12.3); MONO # 0.5 10*3/uL (0.1-1.0); MONO % 8.7 % (3.0-9.0); NEUT # 2.3 10*3/uL (2.3-7.9); PLATELET COUNT AUTOMATED 207 10*3/uL (130-400); RED BLOOD COUNT 4.01 10*6/uL (4.10-5.10); RED CELL DISTRI WIDTH 13.2 % (0-14.5); WHITE BLOOD COUNT 5.6 10*3/uL (4.8-10.8)
[2023-03-27 07:34] LABS: BUN 9 mg/dl (9-23); CHLORIDE 108 mmol/L (98-107); POTASSIUM 4.3 mmol/L (3.4-5.1)
[2023-03-27 07:55] VITALS: BP 128/60
[2023-03-27 08:00] VITALS: BP 127/63
[2023-03-27] MEDS ORDERED: CEFUROXIME AXE250 MG PO (08:55)
[2023-03-27 12:00] VITALS: BP 120/58
== END 2023-03-27 15:45 | disposition home or self-care (01) | DRG 603 ==
LOC: ED 08:40 → 4E 11:57 → EDHOLD 11:57 → 4E 17:46
PROVIDERS: Internal Medicine; ADMIT Internal Medicine; ATTEND Internal Medicine
DX: L03.115 Cellulitis of right lower limb (principal); D68.59 Other primary thrombophilia; K56.609 Unspecified intestinal obstruction, unspecified as to partial versus complete obstruction; Z68.41 Body mass index [BMI] 40.0-44.9, adult; K21.9 Gastro-esophageal reflux disease without esophagitis; S80.11XA Contusion of right lower leg, initial encounter; W18.30XA Fall on same level, unspecified, initial encounter; F41.9 Anxiety disorder, unspecified; G47.33 Obstructive sleep apnea (adult) (pediatric); F32.9 Major depressive disorder, single episode, unspecified; Z20.822 Contact with and (suspected) exposure to COVID-19; J44.9 Chronic obstructive pulmonary disease, unspecified; E66.01 Morbid (severe) obesity due to excess calories; Z88.0 Allergy status to penicillin; Z79.899 Other long term (current) drug therapy; Z90.49 Acquired absence of other specified parts of digestive tract; Z98.51 Tubal ligation status; Z98.84 Bariatric surgery status; Z82.49 Family history of ischemic heart disease and other diseases of the circulatory system; Z83.3 Family history of diabetes mellitus; Y93.89 Activity, other specified; Y92.89 Other specified places as the place of occurrence of the external cause; Y99.8 Other external cause status; Z86.16 Personal history of COVID-19; Z86.718 Personal history of other venous thrombosis and embolism

== ENCOUNTER 2023-03-31 11:37 | Emergency (ER) | payer OTHER ==
[~2023-03-31 11:37] MED LIST changes: +CEFUROXIME AXE250 MG PO
[2023-03-31 12:03] VITALS: BP 128/78
[2023-03-31 12:41] LABS: BILIRUBIN Negative (Negative); BLOOD 2+ (Negative); CLARITY Clear (Clear); COLOR Yellow (Yellow); GLUCOSE Negative (Negative); KETONE Negative (Negative); LEUKO ESTERASE Trace (Negative); NITRITE Negative (Negative); UROBILINOGEN 0.2 E.U./dl (0.0-1.0)
[2023-03-31 12:53] LABS: CALCIUM OXALATE CRYSTALS 2+; RBC 31-40 rbc/hpf (0-2)
[2023-03-31 12:56] LABS: BACTERIA 1+; MUCOUS 1+
[2023-03-31 12:56] LABS: BASO % 0.4 % (0.0-1.0); EOS % 0.1 % (1.0-4.0); HEMATOCRIT 40.3 % (37.0-47.0); LYMPH # 1.1 10*3/uL (1.3-4.4); LYMPH % 14.8 % (27.0-41.0); MEAN CELL VOLUME 92.6 fl (81.0-99.0); MEAN CORPUSCULAR HGB 30.1 pg (27.0-31.0); MEAN CORPUSCULAR HGB CONC 32.5 g/dl (33.0-37.0); MONO # 0.4 10*3/uL (0.1-1.0); MONO % 5.7 % (3.0-9.0); NEUT # 5.8 10*3/uL (2.3-7.9); NEUT % 78.7 % (47.0-73.0); PLATELET COUNT AUTOMATED 225 10*3/uL (130-400); RED BLOOD COUNT 4.35 10*6/uL (4.10-5.10); WHITE BLOOD COUNT 7.4 10*3/uL (4.8-10.8)
[2023-03-31 13:17] LABS: ALKALINE PHOSPHATASE 85 U/L (46-116); BUN 12 mg/dl (9-23); CHLORIDE 108 mmol/L (98-107); POTASSIUM 4.1 mmol/L (3.4-5.1); SGPT/ALT 17 U/L (5-49); TOTAL PROTEIN 6.9 gm/dL (6.0-8.0)
[2023-03-31] MEDS ORDERED: PERCOCET 5-3251 EACH PO (15:35)
[2023-03-31] MEDS ORDERED: ONDANSETRON4 MG SL (15:35)
[2023-03-31] MEDS ORDERED: FLOMAX0.4 MG PO (15:35)
== END 2023-03-31 15:39 | disposition home or self-care (01) ==
LOC: ED 11:37
PROVIDERS: Emergency Medicine
DX: N20.0 Calculus of kidney (principal); J45.909 Unspecified asthma, uncomplicated; R11.2 Nausea with vomiting, unspecified; G43.909 Migraine, unspecified, not intractable, without status migrainosus; Z88.0 Allergy status to penicillin; Z90.49 Acquired absence of other specified parts of digestive tract; Z90.89 Acquired absence of other organs; Z98.51 Tubal ligation status; Z98.890 Other specified postprocedural states

== ENCOUNTER 2023-04-02 09:02 | Emergency (ER) | payer OTHER ==
[~2023-04-02] VITALS: Ht 167.6 cm; Wt 81.6 kg
[~2023-04-02 09:02] MED LIST changes: +FLOMAX0.4 MG PO
[2023-04-02 09:34] VITALS: BP 116/61
[2023-04-02 10:22] LABS: BASO % 0.5 % (0.0-1.0); EOS % 0.2 % (1.0-4.0); HEMATOCRIT 34.2 % (37.0-47.0); LYMPH # 1.1 10*3/uL (1.3-4.4); LYMPH % 13.3 % (27.0-41.0); MEAN CELL VOLUME 89.8 fl (81.0-99.0); MEAN CORPUSCULAR HGB 30.2 pg (27.0-31.0); MEAN CORPUSCULAR HGB CONC 33.6 g/dl (33.0-37.0); MEAN PLATELET VOLUME 9.3 fl (9.6-12.3); MONO # 0.9 10*3/uL (0.1-1.0); MONO % 10.5 % (3.0-9.0); NEUT # 6.3 10*3/uL (2.3-7.9); NEUT % 75.1 % (47.0-73.0); PLATELET COUNT AUTOMATED 176 10*3/uL (130-400); RED BLOOD COUNT 3.81 10*6/uL (4.10-5.10); RED CELL DISTRI WIDTH 12.9 % (0-14.5); WHITE BLOOD COUNT 8.4 10*3/uL (4.8-10.8)
[2023-04-02 10:43] LABS: POTASSIUM 3.6 mmol/L (3.4-5.1)
[2023-04-02 11:03] LABS: BILIRUBIN Negative (Negative); BLOOD Negative (Negative); CLARITY Clear (Clear); COLOR Yellow (Yellow); GLUCOSE Negative (Negative); KETONE Trace (Negative); LEUKO ESTERASE Negative (Negative); NITRITE Negative (Negative); PH 7.5 (4.5-8.0); SPECIFIC GRAVITY 1.015 (1.001-1.030)
[2023-04-02 11:19] LABS: EPITHELIAL CELLS 0-2
[2023-04-02 11:20] LABS: BACTERIA 1+
== END 2023-04-02 12:41 | disposition home or self-care (01) ==
LOC: ED 09:02
PROVIDERS: Emergency Medicine
DX: N20.0 Calculus of kidney (principal); R11.2 Nausea with vomiting, unspecified; I10 Essential (primary) hypertension; E78.5 Hyperlipidemia, unspecified; J45.909 Unspecified asthma, uncomplicated; G43.909 Migraine, unspecified, not intractable, without status migrainosus; Z88.0 Allergy status to penicillin; Z98.890 Other specified postprocedural states; Z90.49 Acquired absence of other specified parts of digestive tract; Z90.89 Acquired absence of other organs; Z98.51 Tubal ligation status

== ENCOUNTER → 2023-04-20 | Outpatient (CLI) | payer OTHER | END | disposition home or self-care (01) | LOC: MAMMO 09:30 | PROVIDERS: ATTEND Nurse Practitioner Women's Health | DX: Z12.31 Encounter for screening mammogram for malignant neoplasm of breast (principal); N64.9 Disorder of breast, unspecified ==

== ENCOUNTER → 2023-10-24 | Outpatient (CLI) | payer OTHER ==
[2023-10-24 10:28] LABS: ALKALINE PHOSPHATASE 88 U/L (46-116); BUN 15 mg/dl (9-23); CHLORIDE 108 mmol/L (98-107); POTASSIUM 4.1 mmol/L (3.4-5.1); SGPT/ALT 15 U/L (5-49); TOTAL PROTEIN 7.1 gm/dL (6.0-8.0)
== END | disposition home or self-care (01) ==
LOC: LAB 09:17
PROVIDERS: ATTEND Nurse Practitioner Women's Health
DX: N95.1 Menopausal and female climacteric states (principal)

== ENCOUNTER → 2024-01-25 | Outpatient (CLI) | payer OTHER | END | disposition home or self-care (01) | LOC: RAD 11:44 | PROVIDERS: ATTEND Family Medicine | DX: R06.02 Shortness of breath (principal); R05.9 Cough, unspecified ==

== ENCOUNTER 2024-01-28 07:59 | Inpatient (IN) | payer OTHER ==
[~2024-01-28] VITALS: Ht 167.6 cm; Wt 120.7 kg
[2024-01-28] MEDS ORDERED: PREDNISONE10 MG PO (08:11)
[2024-01-28] MEDS ORDERED: VIBRAMYCIN100 MG PO (08:11)
[2024-01-28 08:12] VITALS: BP 142/99
[2024-01-28] MEDS ORDERED: BENZONATATE 100 MG CAP PO ONE (08:25)
[2024-01-28] MEDS ORDERED: GUAIFENESIN/DEXTROMETHORPHAN 5 ML UDC PO ONE (08:25)
[2024-01-28] MEDS ORDERED: LEVOFLOXACIN 150 ML IV ONE (08:30)
[2024-01-28] MEDS ORDERED: GUAIFENESIN/DEXTROMETHORPHAN 10 ML UDC PO ONE (08:35)
[2024-01-28 08:41] LABS: BASO % 0.3 % (0.0-1.0); EOS % 0.1 % (1.0-4.0); HEMATOCRIT 37.5 % (37.0-47.0); LYMPH % 14.9 % (27.0-41.0); MEAN CELL VOLUME 88.7 fl (81.0-99.0); MEAN CORPUSCULAR HGB 28.4 pg (27.0-31.0); MEAN PLATELET VOLUME 9.8 fl (9.6-12.3); MONO # 0.3 10*3/uL (0.1-1.0); MONO % 4.6 % (3.0-9.0); NEUT # 5.5 10*3/uL (2.3-7.9); NEUT % 79.5 % (47.0-73.0); PLATELET COUNT AUTOMATED 208 10*3/uL (130-400); RED BLOOD COUNT 4.23 10*6/uL (4.10-5.10); RED CELL DISTRI WIDTH 13.2 % (0-14.5); WHITE BLOOD COUNT 6.9 10*3/uL (4.8-10.8)
[2024-01-28 09:05] LABS: BUN 12 mg/dl (9-23); CHLORIDE 108 mmol/L (98-107); POTASSIUM 3.4 mmol/L (3.4-5.1)
[2024-01-28] MEDS ORDERED: MORPHINE Sulfate 2 MG/ML SYR IV ONE (09:15)
[2024-01-28] MEDS ORDERED: diphenhydrAMINE hydrochloride 50 MG/ML VIAL IV ONE (11:10)
[2024-01-28] MEDS ORDERED: Metoclopramide Hydrochloride 10 MG/2 ML AMP IV ONE (11:10)
[2024-01-28] MEDS ORDERED: DEXAMETHASONE SODIUM PHOSPHA IV ONE (11:10)
[2024-01-28] MEDS ORDERED: Ketorolac Tromethamine 30 MG/ML VIAL IV ONE (11:10)
[2024-01-28] MEDS ORDERED: ACETAMINOPHEN 325 MG TAB PO ONE (11:10)
[2024-01-28] MEDS ORDERED: Dexamethasone Sodium Phospha 4 MG/ML VIAL IV ONE (11:15)
[2024-01-28] MEDS ORDERED: REMDESIVIR 200 MG in SODIUM CHLORIDE 0.9% 210 ML IV ONE (14:00)
[2024-01-28 15:51] VITALS: BP 122/67
[2024-01-28] MEDS ORDERED: Pantoprazole Sodium 40 MG TAB PO SCH (16:30)
[2024-01-28] MEDS ORDERED: BENZONATATE 100 MG CAP PO PRN (18:40)
[2024-01-28] MEDS ORDERED: GUAIFENESIN/DEXTROMETHORPHAN 10 ML UDC PO PRN (18:40)
[2024-01-28 20:00] VITALS: BP 125/55
[2024-01-28] MEDS ORDERED: ACETAMINOPHEN 325 MG TAB PO PRN (20:25)
[2024-01-28] MEDS ORDERED: GUAIFENESIN 600 MG TAB ER PO SCH (22:00)
[2024-01-28] MEDS ORDERED: APIXABAN 5 MG TAB PO SCH (22:00)
[2024-01-28] MEDS ORDERED: VEOZAH45 MG PO (22:44)
[2024-01-29 06:16] LABS: HEMATOCRIT 35.4 % (37.0-47.0); LYMPH # 1.5 10*3/uL (1.3-4.4); LYMPH % 18.3 % (27.0-41.0); MEAN CELL VOLUME 88.1 fl (81.0-99.0); MEAN CORPUSCULAR HGB 28.4 pg (27.0-31.0); MEAN CORPUSCULAR HGB CONC 32.2 g/dl (33.0-37.0); MEAN PLATELET VOLUME 10.7 fl (9.6-12.3); MONO # 0.6 10*3/uL (0.1-1.0); MONO % 7.7 % (3.0-9.0); NEUT # 5.9 10*3/uL (2.3-7.9); NEUT % 73.6 % (47.0-73.0); PLATELET COUNT AUTOMATED 209 10*3/uL (130-400); RED BLOOD COUNT 4.02 10*6/uL (4.10-5.10); RED CELL DISTRI WIDTH 13.2 % (0-14.5)
[2024-01-29 06:52] LABS: BUN 16 mg/dl (9-23); CHLORIDE 107 mmol/L (98-107); POTASSIUM 3.6 mmol/L (3.4-5.1)
[2024-01-29 08:00] VITALS: BP 130/70
[2024-01-29] MEDS ORDERED: Ketorolac Tromethamine 30 MG/ML VIAL IV ONE ×2 (09:20→18:50)
[2024-01-29] MEDS ORDERED: LORATADINE 10 MG TAB PO SCH (10:00)
[2024-01-29] MEDS ORDERED: Pantoprazole Sodium 40 MG TAB PO SCH (10:00)
[2024-01-29] MEDS ORDERED: AZITHROMYCIN 250 ML IV SCH (10:00)
[2024-01-29] MEDS ORDERED: Dexamethasone Sodium Phospha 4 MG/ML VIAL IV SCH (10:00)
[2024-01-29 12:00] VITALS: BP 117/65
[2024-01-29] MEDS ORDERED: Albuterol Sulf/Ipratropium 3 ML VIAL NEB SCH (13:04)
[2024-01-29] MEDS ORDERED: REMDESIVIR 100 MG in SODIUM CHLORIDE 0.9% 230 ML IV SCH (14:00)
[2024-01-29 16:00] VITALS: BP 120/80
[2024-01-29] MEDS ORDERED: Ketorolac Tromethamine 15 MG/ML VIAL IV ONE (17:20)
[2024-01-29] MEDS ORDERED: Ondansetron Hydrochloride 4 MG/2 ML VIAL IV ONE (18:40)
[2024-01-29] MEDS ORDERED: diphenhydrAMINE hydrochloride 50 MG/ML VIAL IV ONE (18:50)
[2024-01-29] MEDS ORDERED: Metoclopramide Hydrochloride 10 MG/2 ML AMP IV ONE (18:50)
[2024-01-29 20:00] VITALS: BP 123/70
[2024-01-29] MEDS ORDERED: [UNRECOGNIZED DRUG - OTHER] PO SCH (22:00)
[2024-01-30] VITALS: BP 115/50
[2024-01-30 06:22] LABS: BASO % 0.1 % (0.0-1.0); HEMATOCRIT 34.8 % (37.0-47.0); LYMPH # 2.1 10*3/uL (1.3-4.4); LYMPH % 23.7 % (27.0-41.0); MEAN CELL VOLUME 90.4 fl (81.0-99.0); MEAN CORPUSCULAR HGB 28.1 pg (27.0-31.0); MEAN PLATELET VOLUME 10.4 fl (9.6-12.3); MONO # 0.6 10*3/uL (0.1-1.0); NEUT # 6.1 10*3/uL (2.3-7.9); NEUT % 68.5 % (47.0-73.0); PLATELET COUNT AUTOMATED 212 10*3/uL (130-400); RED BLOOD COUNT 3.85 10*6/uL (4.10-5.10); RED CELL DISTRI WIDTH 13.3 % (0-14.5); WHITE BLOOD COUNT 8.9 10*3/uL (4.8-10.8)
[2024-01-30 06:52] LABS: ALKALINE PHOSPHATASE 72 U/L (46-116); BUN 15 mg/dl (9-23); CHLORIDE 108 mmol/L (98-107); LDH 154 U/L (120-246); POTASSIUM 4.3 mmol/L (3.4-5.1); SGPT/ALT 13 U/L (5-49); TOTAL PROTEIN 5.7 gm/dL (6.0-8.0)
[2024-01-30 08:00] VITALS: BP 126/73
[2024-01-30] MEDS ORDERED: BENZONATATE100 M1 PO ×2 (08:13)
[2024-01-30 12:00] VITALS: BP 122/70
== END 2024-01-30 17:53 | disposition home or self-care (01) | DRG 178 ==
LOC: ED 07:59 → EDHOLD 11:28 → 4E 11:28 → EDHOLD 14:59 → 4E 18:23
PROVIDERS: Internal Medicine; Internal Medicine Critical Care Medicine; ADMIT Internal Medicine; ATTEND Internal Medicine
PROC: XW033E5 Introduction of Remdesivir Anti-infective into Peripheral Vein, Percutaneous Approach, New Technology Group 5 (ICD-10-PCS; principal; 2024-01-29)
DX: U07.1 COVID-19 (principal); J45.901 Unspecified asthma with (acute) exacerbation; J98.4 Other disorders of lung; G43.909 Migraine, unspecified, not intractable, without status migrainosus; E66.01 Morbid (severe) obesity due to excess calories; K57.90 Diverticulosis of intestine, part unspecified, without perforation or abscess without bleeding; K21.9 Gastro-esophageal reflux disease without esophagitis; F32.9 Major depressive disorder, single episode, unspecified; Z86.711 Personal history of pulmonary embolism; Z79.01 Long term (current) use of anticoagulants; Z87.442 Personal history of urinary calculi; Z90.49 Acquired absence of other specified parts of digestive tract; Z98.51 Tubal ligation status; Z82.3 Family history of stroke; Z82.49 Family history of ischemic heart disease and other diseases of the circulatory system; Z88.0 Allergy status to penicillin

== ENCOUNTER → 2024-02-17 | Outpatient (CLI) | payer OTHER ==
[~2024-02-17] MED LIST changes: +BENZONATATE100 M1 PO; +VEOZAH45 MG PO
[2024-02-17 09:30] LABS: ALKALINE PHOSPHATASE 81 U/L (46-116); BUN 13 mg/dl (9-23); CHLORIDE 106 mmol/L (98-107); POTASSIUM 3.7 mmol/L (3.4-5.1); SGPT/ALT 20 U/L (5-49); TOTAL PROTEIN 6.6 gm/dL (6.0-8.0)
== END | disposition home or self-care (01) ==
LOC: LAB 07:15
PROVIDERS: ATTEND Nurse Practitioner Women's Health
DX: N95.1 Menopausal and female climacteric states (principal)

== ENCOUNTER 2024-08-02 19:39 | Emergency (ER) | payer OTHER ==
[~2024-08-02] VITALS: Ht 167.6 cm; Wt 120.2 kg
[2024-08-02] MEDS ORDERED: HYDROmorphONE Hydrochloride 0.5 MG/0.5 ML SYRINGE IV ONE ×2 (19:45→20:35)
[2024-08-02] MEDS ORDERED: SODIUM CHLORIDE 0.9% 500 ML IV ONE (19:45)
[2024-08-02] MEDS ORDERED: Dicyclomine Hydrochloride 20 MG/10 ML OSYR PO STA (19:51)
[2024-08-02] MEDS ORDERED: MG-AL HYDROXIDE/SIMETICONE 30 ML UDC PO STA (19:51)
[2024-08-02] MEDS ORDERED: Lidocaine Hydrochloride 15 ML UDC PO STA (19:51)
[2024-08-02 20:07] LABS: BASO # 0.1 10*3/uL (0.0-0.1); BASO % 0.7 % (0.0-1.0); EOS # 0.1 10*3/uL (0.0-0.4); EOS % 1.8 % (1.0-4.0); HEMATOCRIT 37.4 % (37.0-47.0); MEAN CORPUSCULAR HGB 27.6 pg (27.0-31.0); MEAN PLATELET VOLUME 10.5 fl (9.6-12.3); MONO # 0.6 10*3/uL (0.1-1.0); NEUT # 4.2 10*3/uL (2.3-7.9); NEUT % 54.5 % (47.0-73.0); PLATELET COUNT AUTOMATED 255 10*3/uL (130-400); WHITE BLOOD COUNT 7.7 10*3/uL (4.8-10.8)
[2024-08-02 20:19] LABS: ACT PARTIAL THROMBO TIME 25.5 SECONDS (20.0-32.1)
[2024-08-02 20:29] LABS: ALKALINE PHOSPHATASE 91 U/L (46-116); BUN 14 mg/dl (9-23); CHLORIDE 105 mmol/L (98-107); LIPASE 50 U/L (12-53); POTASSIUM 3.9 mmol/L (3.4-5.1); SGPT/ALT 13 U/L (5-49); TOTAL PROTEIN 7.1 gm/dL (6.0-8.0)
[2024-08-02] MEDS ORDERED: NITROGLYCERIN 0.4 MG BOT SL ONE ×2 (20:30→20:48)
[2024-08-02] MEDS ORDERED: IOHEXOL 350 MG/ML 100 ML VIAL IV ONE ×2 (20:35→21:50)
[2024-08-02] MEDS ORDERED: SODIUM CHLORIDE 0.9% 100 ML BAG IV ONE (20:35)
[2024-08-02] MEDS ORDERED: SODIUM CHLORIDE 0.9% 100 ML IV ONE (21:50)
[2024-08-02] MEDS ORDERED: Midazolam Hydrochloride 2 MG/2 ML VIAL IV ONE (22:15)
[2024-08-02 22:22] LABS: BILIRUBIN Negative (Negative); BLOOD Negative (Negative); CLARITY Clear (Clear); COLOR Yellow (Yellow); GLUCOSE Negative (Negative); KETONE Negative (Negative); LEUKO ESTERASE 2+ (Negative); NITRITE Negative (Negative); PH 5.5 (4.5-8.0); SPECIFIC GRAVITY 1.015 (1.001-1.030); UROBILINOGEN 0.2 E.U./dl (0.0-1.0)
[2024-08-02 22:29] LABS: BACTERIA TRACE; EPITHELIAL CELLS 21-30; WBC 16-20 wbc/hpf (0-5)
[2024-08-02 22:52] VITALS: BP 118/58
== END 2024-08-02 23:02 | disposition home or self-care (01) ==
LOC: ED 19:39
PROVIDERS: Internal Medicine
DX: R07.89 Other chest pain (principal); Z86.718 Personal history of other venous thrombosis and embolism; Z88.0 Allergy status to penicillin; Z79.899 Other long term (current) drug therapy; Z90.49 Acquired absence of other specified parts of digestive tract; Z90.89 Acquired absence of other organs; Z53.29 Procedure and treatment not carried out because of patient's decision for other reasons

== ENCOUNTER 2024-08-03 12:38 | Inpatient (IN) | payer OTHER ==
[~2024-08-03] VITALS: Ht 167.6 cm; Wt 120.2 kg
[2024-08-03] MEDS ORDERED: SODIUM CHLORIDE 0.9% 1,000 ML IV ONE (12:45)
[2024-08-03 12:47] VITALS: BP 150/94
[2024-08-03] MEDS ORDERED: NITROGLYCERIN 0.4 MG BOT SL ONE (12:50)
[2024-08-03] MEDS ORDERED: diazePAM 5 MG TAB PO ONE ×2 (13:00→20:40)
[2024-08-03] MEDS ORDERED: ACETAMINOPHEN 325 MG TAB PO ONE (13:15)
[2024-08-03 13:16] LABS: BASO % 0.7 % (0.0-1.0); EOS # 0.1 10*3/uL (0.0-0.4); HEMATOCRIT 37.2 % (37.0-47.0); MEAN CELL VOLUME 88.6 fl (81.0-99.0); MEAN CORPUSCULAR HGB 27.9 pg (27.0-31.0); MEAN CORPUSCULAR HGB CONC 31.5 g/dl (33.0-37.0); MEAN PLATELET VOLUME 10.3 fl (9.6-12.3); MONO # 0.4 10*3/uL (0.1-1.0); NEUT # 3.2 10*3/uL (2.3-7.9); NEUT % 60.2 % (47.0-73.0); PLATELET COUNT AUTOMATED 223 10*3/uL (130-400); WHITE BLOOD COUNT 5.4 10*3/uL (4.8-10.8)
[2024-08-03 13:35] LABS: BUN 12 mg/dl (9-23); CHLORIDE 109 mmol/L (98-107); POTASSIUM 3.7 mmol/L (3.4-5.1)
[2024-08-03] MEDS ORDERED: ACETAMINOPHEN 325 MG TAB PO PRN (14:45)
[2024-08-03] MEDS ORDERED: LORazepam 1 MG TAB PO PRN (15:25)
[2024-08-03] MEDS ORDERED: HYDROmorphONE Hydrochloride 0.5 MG/0.5 ML SYRINGE IV ONE ×2 (16:25→20:45)
[2024-08-03] MEDS ORDERED: Ondansetron Hydrochloride 4 MG/2 ML VIAL IV ONE (16:25)
[2024-08-03] MEDS ORDERED: MORPHINE Sulfate 2 MG/ML SYR IV PRN (16:50)
[2024-08-03] MEDS ORDERED: Dextrose/Nitroglycerin 250 ML IV SCH (18:00)
[2024-08-03] MEDS ORDERED: Pantoprazole Sodium 40 MG TAB PO SCH (18:00)
[2024-08-03] MEDS ORDERED: NITROGLYCERIN 1 IN PACKET T SCH (18:00)
[2024-08-03 20:00] VITALS: BP 135/94
[2024-08-03] MEDS ORDERED: HEPARIN SODIUM 250 ML IV SCH (20:35)
[2024-08-03] MEDS ORDERED: APIXABAN 5 MG TAB PO SCH (22:00)
== END 2024-08-03 22:40 | disposition other institution (70) | DRG 311 ==
LOC: ED 12:38 → EDHOLD 14:33
PROVIDERS: Emergency Medicine; ADMIT Internal Medicine; ATTEND Internal Medicine
DX: I20.0 Unstable angina (principal); Z68.41 Body mass index [BMI] 40.0-44.9, adult; K21.9 Gastro-esophageal reflux disease without esophagitis; G47.33 Obstructive sleep apnea (adult) (pediatric); K57.90 Diverticulosis of intestine, part unspecified, without perforation or abscess without bleeding; E66.01 Morbid (severe) obesity due to excess calories; E55.9 Vitamin D deficiency, unspecified; J45.909 Unspecified asthma, uncomplicated; F41.9 Anxiety disorder, unspecified; E87.8 Other disorders of electrolyte and fluid balance, not elsewhere classified; D64.9 Anemia, unspecified; Z86.718 Personal history of other venous thrombosis and embolism; Z86.711 Personal history of pulmonary embolism; Z90.49 Acquired absence of other specified parts of digestive tract; Z83.3 Family history of diabetes mellitus; Z82.49 Family history of ischemic heart disease and other diseases of the circulatory system; Z83.79 Family history of other diseases of the digestive system; Z88.0 Allergy status to penicillin; Z79.899 Other long term (current) drug therapy; Z82.3 Family history of stroke

== ENCOUNTER 2024-10-01 17:55 | Emergency (ER) | payer BC, OTHER ==
[~2024-10-01] VITALS: Wt 122.5 kg
[2024-10-01] MEDS ORDERED: Ondansetron Hydrochloride 4 MG/2 ML VIAL IV ONE (18:05)
[2024-10-01] MEDS ORDERED: SODIUM CHLORIDE 0.9% 1,000 ML IV ONE (18:05)
[2024-10-01] MEDS ORDERED: HYDROmorphone Hydrochloride 1 MG/ML SYR IV ONE (18:05)
[2024-10-01] MEDS ORDERED: METHOCARBAMOL 500 MG TAB PO ONE (19:30)
[2024-10-01] MEDS ORDERED: Acetaminophen/Oxycodone 5 MG/325 MG TABLET PO ONE (20:25)
[2024-10-01] MEDS ORDERED: METHOCARBAMOL750 M1 PO (20:30)
== END 2024-10-01 20:49 | disposition home or self-care (01) ==
LOC: ED 17:55
DX: S46.911A Strain of unspecified muscle, fascia and tendon at shoulder and upper arm level, right arm, initial encounter (principal); S16.1XXA Strain of muscle, fascia and tendon at neck level, initial encounter; T14.8XXA Other injury of unspecified body region, initial encounter; G43.909 Migraine, unspecified, not intractable, without status migrainosus; J45.909 Unspecified asthma, uncomplicated; Z79.899 Other long term (current) drug therapy; Z88.0 Allergy status to penicillin; Z90.49 Acquired absence of other specified parts of digestive tract; Z90.89 Acquired absence of other organs; Z98.51 Tubal ligation status; Z98.890 Other specified postprocedural states; W18.39XA Other fall on same level, initial encounter; Y93.89 Activity, other specified; Y92.89 Other specified places as the place of occurrence of the external cause; Y99.8 Other external cause status

== ENCOUNTER → 2024-10-11 | Outpatient (CLI) | payer BC, OTHER ==
[~2024-10-11] MED LIST changes: +METHOCARBAMOL750 M1 PO
[2024-10-11 07:38] LABS: BASO % 0.3 % (0.0-1.0); EOS # 0.1 10*3/uL (0.0-0.4); EOS % 2.1 % (1.0-4.0); HEMATOCRIT 36.3 % (37.0-47.0); MEAN CELL VOLUME 87.5 fl (81.0-99.0); MEAN CORPUSCULAR HGB 27.7 pg (27.0-31.0); MEAN CORPUSCULAR HGB CONC 31.7 g/dl (33.0-37.0); MONO # 0.6 10*3/uL (0.1-1.0); MONO % 9.9 % (3.0-9.0); NEUT # 3.9 10*3/uL (2.3-7.9); NEUT % 64.6 % (47.0-73.0); PLATELET COUNT AUTOMATED 241 10*3/uL (130-400); RED BLOOD COUNT 4.15 10*6/uL (4.10-5.10); RED CELL DISTRI WIDTH 13.2 % (0-14.5); WHITE BLOOD COUNT 6.1 10*3/uL (4.8-10.8)
[2024-10-11 08:09] LABS: VITAMIN D, 25-HYDROXY 40.1 ng/mL (30-100)
[2024-10-11 08:10] LABS: ALKALINE PHOSPHATASE 91 U/L (46-116); BUN 15 mg/dl (9-23); CHLORIDE 106 mmol/L (98-107); FREE T4 1.08 ng/dl (0.89-1.76); POTASSIUM 3.4 mmol/L (3.4-5.1); SGPT/ALT 13 U/L (5-49); TOTAL PROTEIN 6.6 gm/dL (6.0-8.0)
== END | disposition home or self-care (01) ==
LOC: LAB 07:10
PROVIDERS: Family Medicine; ATTEND Nurse Practitioner Women's Health
DX: N95.1 Menopausal and female climacteric states (principal); E55.9 Vitamin D deficiency, unspecified; R53.83 Other fatigue; F41.1 Generalized anxiety disorder; E74.00 Glycogen storage disease, unspecified; I26.01 Septic pulmonary embolism with acute cor pulmonale; I82.401 Acute embolism and thrombosis of unspecified deep veins of right lower extremity; E66.811 Obesity, class 1; I68.0 Cerebral amyloid angiopathy

== ENCOUNTER 2024-11-25 21:21 | Emergency (ER) | payer BC, OTHER ==
[2024-11-25 21:40] LABS: BILIRUBIN Negative (Negative); BLOOD Negative (Negative); CLARITY Clear (Clear); COLOR Yellow (Yellow); KETONE Negative (Negative); LEUKO ESTERASE 2+ (Negative); NITRITE Negative (Negative); PH 6.5 (4.5-8.0); SPECIFIC GRAVITY <= 1.005 (1.001-1.030); UROBILINOGEN 0.2 E.U./dl (0.0-1.0)
[2024-11-25 21:45] VITALS: BP 114/64
[2024-11-25 21:49] LABS: BACTERIA 1+
[2024-11-25] MEDS ORDERED: SODIUM CHLORIDE 0.9% 1,000 ML IV ONE (21:50)
[2024-11-25] MEDS ORDERED: Ondansetron Hydrochloride 4 MG/2 ML VIAL IV ONE (21:50)
[2024-11-25 22:28] LABS: BASO # 0.0 10*3/uL (0.0-0.1); BASO % 0.6 % (0.0-1.0); EOS # 0.1 10*3/uL (0.0-0.4); EOS % 1.5 % (1.0-4.0); MEAN CELL VOLUME 87.6 fl (81.0-99.0); MEAN CORPUSCULAR HGB 27.5 pg (27.0-31.0); MEAN PLATELET VOLUME 9.9 fl (9.6-12.3); MONO # 0.6 10*3/uL (0.1-1.0); MONO % 7.9 % (3.0-9.0); NEUT # 3.5 10*3/uL (2.3-7.9); NEUT % 48.4 % (47.0-73.0); NUCLEATED RED BLOOD CELL 0.0 % (0.0-0.0); NUCLEATED RED BLOOD CELL 0.0 10*3/uL (0.0-0.0); PLATELET COUNT AUTOMATED 247 10*3/uL (130-400); RED CELL DISTRI WIDTH 13.5 % (0-14.5)
[2024-11-25 22:51] LABS: BUN 13 mg/dl (9-23)
[2024-11-25] MEDS ORDERED: POTASSIUM CHLORIDE 20 MEQ TAB PO ONE (23:15)
[2024-11-25] MEDS ORDERED: Metoclopramide Hydrochloride 10 MG/2 ML VIAL IV ONE (23:35)
[2024-11-25] MEDS ORDERED: diphenhydrAMINE hydrochloride 50 MG/ML VIAL IV ONE (23:35)
[2024-11-26] MEDS ORDERED: CIPRO500 MG PO (00:09)
[2024-11-26] MEDS ORDERED: POTASSIUM CHLO20 ME3 PO (01:28)
== END 2024-11-26 00:20 | disposition home or self-care (01) ==
LOC: ED 21:21
PROVIDERS: Nurse Practitioner Family
DX: N39.0 Urinary tract infection, site not specified (principal); E87.6 Hypokalemia; F41.9 Anxiety disorder, unspecified; J45.909 Unspecified asthma, uncomplicated; G43.909 Migraine, unspecified, not intractable, without status migrainosus; Z88.0 Allergy status to penicillin; Z79.899 Other long term (current) drug therapy; Z86.718 Personal history of other venous thrombosis and embolism; Z90.49 Acquired absence of other specified parts of digestive tract

== ENCOUNTER 2024-12-08 15:18 | Emergency (ER) | payer BC, OTHER ==
[~2024-12-08 15:18] MED LIST changes: +POTASSIUM CHLO20 ME3 PO
[2024-12-08 15:45] VITALS: BP 151/66
[2024-12-08] MEDS ORDERED: Ondansetron Hydrochloride 4 MG/2 ML VIAL IV ONE ×2 (15:55→19:25)
[2024-12-08] MEDS ORDERED: SODIUM CHLORIDE 0.9% 1,000 ML IV ONE ×3 (15:55→18:20)
[2024-12-08] MEDS ORDERED: diazePAM 5 MG TAB PO ONE (15:55)
[2024-12-08 16:20] LABS: BASO # 0.1 10*3/uL (0.0-0.1); BASO % 0.5 % (0.0-1.0); EOS # 0.1 10*3/uL (0.0-0.4); EOS % 0.5 % (1.0-4.0); MEAN CELL VOLUME 88.8 fl (81.0-99.0); MEAN CORPUSCULAR HGB 27.7 pg (27.0-31.0); MEAN PLATELET VOLUME 10.7 fl (9.6-12.3); MONO # 0.8 10*3/uL (0.1-1.0); MONO % 7.8 % (3.0-9.0); NEUT # 8.0 10*3/uL (2.3-7.9); NEUT % 76.4 % (47.0-73.0); NUCLEATED RED BLOOD CELL 0.0 % (0.0-0.0); NUCLEATED RED BLOOD CELL 0.0 10*3/uL (0.0-0.0); PLATELET COUNT AUTOMATED 267 10*3/uL (130-400); RED CELL DISTRI WIDTH 13.2 % (0-14.5)
[2024-12-08 17:44] LABS: BUN 12.0 mg/dl (9-23)
[2024-12-08 18:11] LABS: BILIRUBIN Negative (Negative); BLOOD 3+ (Negative); CLARITY Cloudy (Clear); COLOR Yellow (Yellow); KETONE Negative (Negative); LEUKO ESTERASE 1+ (Negative); NITRITE Negative (Negative); PH 7.5 (4.5-8.0); SPECIFIC GRAVITY 1.010 (1.001-1.030); UROBILINOGEN 0.2 E.U./dl (0.0-1.0)
[2024-12-08 18:24] LABS: RBC TNTC rbc/hpf (0-2)
[2024-12-08 18:25] LABS: BACTERIA 1+
== END 2024-12-08 20:22 | disposition short-term general hospital (02) ==
LOC: ED 15:18
PROVIDERS: Emergency Medicine
DX: N20.0 Calculus of kidney (principal); Z90.89 Acquired absence of other organs; Z98.84 Bariatric surgery status; Z90.49 Acquired absence of other specified parts of digestive tract; Z88.0 Allergy status to penicillin